=== PATIENT | female | born 1950 | race Caucasian/White ===

== ENCOUNTER 2017-03-25 13:05 | Inpatient (IN) | payer MEDICARE, MEDICAID ==
[~2017-03-25] VITALS: Ht 157.5 cm; Wt 67.9 kg
[~2017-03-25 13:05] MED LIST: LISI-660 PO; LORA10TA7 PO; OMEP20 PO; SIMV-260 PO; TRAZ-147 PO; VENL-68 PO; VITAD1000 PO
[2017-03-25] MEDS ORDERED: ZOLP5 PO (13:35)
[2017-03-25] MEDS ORDERED: CLON2 PO (13:35)
[2017-03-25 14:00] LABS: BASOPHILS # (AUTO) 0.04 K/uL (0.00-0.20); BASOPHILS % (AUTO) 0.4 % (0.0-2.0); EOSINOPHILS # (AUTO) 0.31 K/uL (0.00-0.70); EOSINOPHILS % (AUTO) 3.49 % (1.0-6.0); HEMATOCRIT 45.5 % (36-46); HEMOGLOBIN 14.7 g/dL (12.0-16.0); LYMPHOCYTES # (AUTO) 2.6 K/uL (1.0-4.8); LYMPHOCYTES % (AUTO) 28.8 % (22.0-44.0); MEAN CORPUSCULAR HEMOGLOBIN 28.4 pg (26.0-34.0); MEAN CORPUSCULAR HGB CONC 32.4 G/dL (31.0-37.0); MEAN CORPUSCULAR VOLUME 88 fL (80-100); MONOCYTES # (AUTO) 0.7 K/uL (0.1-1.0); MONOCYTES % (AUTO) 7.8 % (2.0-9.0); NEUTROPHILS # (AUTO) 5.3 K/uL (1.8-7.7); NEUTROPHILS % (AUTO) 59.5 % (40.0-70.0); PLATELET COUNT (AUTO) 250 K/uL (150-450); RED BLOOD CELL COUNT(AUTO) 5.19 MIL/uL (4.00-5.20); RED CELL DISTRIBUTION WIDTH 15.9 % (11.5-14.5); WHITE BLOOD COUNT (AUTO) 8.9 K/uL (4.5-11.0)
[2017-03-25 14:17] LABS: ANION GAP 10 mmol/L (8-16); CARBON DIOXIDE 29 mmol/L (22-29); CHLORIDE 107 mmol/L (98-107); CREATININE 0.66 mg/dL (0.60-1.30); GLOMERULAR FILTR. RATE CALC > 60 mL/min (>60); SODIUM SERUM 146 mmol/L (136-145); UREA NITROGEN, BLOOD 15 mg/dL (7-18)
[2017-03-25 14:24] LABS: ALANINE AMINOTRANSFERASE 31 U/L (12-78); ALBUMIN 3.2 g/dL (3.4-5.0); ASPARTATE AMINOTRANSFERASE 20 U/L (15-37); BILIRUBIN,TOTAL 0.3 mg/dL (0.1-1.0); TOTAL PROTEIN, SERUM 7.3 g/dL (6.4-8.2)
[2017-03-25] MEDS ORDERED: LORazepam 2 MG TABLET PO ONE (15:15)
[2017-03-25] MEDS ORDERED: HALOPERIDOL 5 MG TABLET PO PRN (15:30)
[2017-03-25] MEDS ORDERED: IBUPROFEN 600 MG TABLET PO PRN (18:30)
[2017-03-25] MEDS ORDERED: BENZOCAINE/MENTHOL LOZENGE [8 LOZENGES/PACKET] MM PRN (18:30)
[2017-03-25] MEDS ORDERED: ALBUTEROL SULFATE HFA 90 MCG/PUFF 8 GM INHALER IH PRN (18:30)
[2017-03-25] MEDS ORDERED: DICLOFENAC SODIUM 1% 100 GM GEL [2GM] TP PRN (18:30)
[2017-03-25] MEDS ORDERED: ACETAMINOPHEN 325 MG TABLET PO PRN (18:30)
[2017-03-25] MEDS ORDERED: BACITRACIN 28.4 GM OINTMENT TP PRN (18:30)
[2017-03-25] MEDS ORDERED: MAG HYDROX/AL HYDROX/SIMETH ES 30 ML SUSPENSION UDCUP PO PRN (18:30)
[2017-03-25] MEDS ORDERED: CloNIDine HCL 0.1 MG TABLET PO PRN (18:30)
[2017-03-25] MEDS ORDERED: LOPERAMIDE HCL 2 MG CAPSULE PO PRN (18:30)
[2017-03-25] MEDS ORDERED: MAGNESIUM HYDROXIDE SUSPENSION 30 ML UDCUP PO PRN (18:30)
[2017-03-25] MEDS ORDERED: ONDANSETRON HCL 4 MG TABLET PO PRN (18:30)
[2017-03-25] MEDS ORDERED: PETROLATUM,WHITE 71 GM JELLY TP PRN (18:30)
[2017-03-25 18:50] VITALS: BP 135/89
[2017-03-25] MEDS: LISINOPRIL 5 MG TABLET PO SCH (19:30)
[2017-03-25] MEDS: NICOTINE 21 MG/24 HOUR PATCH TD SCH (19:30)
[2017-03-25] MEDS: SIMVASTATIN 20 MG TABLET PO SCH (20:54)
[2017-03-26 06:51] LABS: CHOL/HDL RATIO 2.8 (3.9-5.7)
[2017-03-26 08:45] VITALS: BP 157/85
[2017-03-26] MEDS: OMEPRAZOLE 20 MG CAPSULE PO SCH (09:15)
[2017-03-26] MEDS: DOCUSATE SODIUM 100 MG CAPSULE PO SCH (09:15)
[2017-03-26] MEDS: LORATADINE 10 MG TABLET PO SCH (09:15)
[2017-03-26] MEDS: VENLAFAXINE HCL 150 MG ER CAPSULE PO SCH (09:15)
[2017-03-26] MEDS: CHOLECALCIFEROL (VIT D3) 1,000 UNITS TABLET PO SCH (09:16)
[2017-03-26] MEDS: LISINOPRIL 5 MG TABLET PO SCH (09:16)
[2017-03-26] MEDS: LORazepam 2 MG TABLET PO PRN ×3 (09:17→17:41)
[2017-03-26] MEDS: NICOTINE 21 MG/24 HOUR PATCH TD SCH (09:19)
[2017-03-26 16:51] VITALS: BP 123/75
[2017-03-26] MEDS: SIMVASTATIN 20 MG TABLET PO SCH (20:06)
[2017-03-26] MEDS: ZOLPIDEM TARTRATE 10 MG TABLET PO PRN (23:27)
[2017-03-27 00:02] VITALS: BP 140/92
[2017-03-27] MEDS: LORazepam 2 MG TABLET PO PRN ×4 (03:44→20:39)
[2017-03-27 08:42] VITALS: BP 146/72
[2017-03-27] MEDS: NICOTINE 21 MG/24 HOUR PATCH TD SCH (09:32)
[2017-03-27] MEDS: LORATADINE 10 MG TABLET PO SCH (09:32)
[2017-03-27] MEDS: DOCUSATE SODIUM 100 MG CAPSULE PO SCH (09:32)
[2017-03-27] MEDS: LISINOPRIL 5 MG TABLET PO SCH (09:32)
[2017-03-27] MEDS: CHOLECALCIFEROL (VIT D3) 1,000 UNITS TABLET PO SCH (09:32)
[2017-03-27] MEDS: VENLAFAXINE HCL 150 MG ER CAPSULE PO SCH (09:33)
[2017-03-27] MEDS: OMEPRAZOLE 20 MG CAPSULE PO SCH (09:33)
[2017-03-27] MEDS: TraMADol HCL 50 MG TABLET PO PRN (11:40)
[2017-03-27 16:53] VITALS: BP 150/98
[2017-03-27] MEDS ORDERED: DICLOFENAC SODIUM 1% 100 GM GEL [2GM] TP PRN (18:45)
[2017-03-27] MEDS: SIMVASTATIN 20 MG TABLET PO SCH (20:39)
[2017-03-27] MEDS: ZOLPIDEM TARTRATE 10 MG TABLET PO PRN (21:42)
[2017-03-28 01:08] VITALS: BP 147/101
[2017-03-28] MEDS: TraMADol HCL 50 MG TABLET PO PRN ×3 (01:16→14:20)
[2017-03-28] MEDS: LORazepam 2 MG TABLET PO PRN ×5 (03:48→20:06)
[2017-03-28] MEDS: LORATADINE 10 MG TABLET PO SCH (08:17)
[2017-03-28] MEDS: DOCUSATE SODIUM 100 MG CAPSULE PO SCH (08:17)
[2017-03-28 08:18] VITALS: BP 124/66
[2017-03-28] MEDS: VENLAFAXINE HCL 150 MG ER CAPSULE PO SCH (08:18)
[2017-03-28] MEDS: LISINOPRIL 5 MG TABLET PO SCH (08:18)
[2017-03-28] MEDS: OMEPRAZOLE 20 MG CAPSULE PO SCH (08:18)
[2017-03-28] MEDS: CHOLECALCIFEROL (VIT D3) 1,000 UNITS TABLET PO SCH (08:18)
[2017-03-28] MEDS: NICOTINE 21 MG/24 HOUR PATCH TD SCH (08:23)
[2017-03-28] MEDS: SIMVASTATIN 20 MG TABLET PO SCH (20:36)
[2017-03-28 21:01] VITALS: BP 156/90
[2017-03-28] MEDS: ZOLPIDEM TARTRATE 10 MG TABLET PO PRN (21:39)
[2017-03-29 05:00] VITALS: BP 146/89
[2017-03-29] MEDS: LORATADINE 10 MG TABLET PO SCH (08:52)
[2017-03-29] MEDS: LISINOPRIL 5 MG TABLET PO SCH (08:53)
[2017-03-29] MEDS: CHOLECALCIFEROL (VIT D3) 1,000 UNITS TABLET PO SCH (08:53)
[2017-03-29] MEDS: OMEPRAZOLE 20 MG CAPSULE PO SCH (08:53)
[2017-03-29] MEDS: DOCUSATE SODIUM 100 MG CAPSULE PO SCH (08:53)
[2017-03-29] MEDS: VENLAFAXINE HCL 150 MG ER CAPSULE PO SCH (08:55)
[2017-03-29] MEDS: LORazepam 2 MG TABLET PO PRN ×3 (08:55→17:47)
[2017-03-29] MEDS: NICOTINE 21 MG/24 HOUR PATCH TD SCH (08:57)
[2017-03-29 12:42] VITALS: BP 148/98
[2017-03-29] MEDS: TraMADol HCL 50 MG TABLET PO PRN ×2 (15:59→22:53)
[2017-03-29 16:00] VITALS: BP 141/89
[2017-03-29] MEDS: SIMVASTATIN 20 MG TABLET PO SCH (20:20)
[2017-03-29] MEDS: ZOLPIDEM TARTRATE 10 MG TABLET PO PRN (21:15)
[2017-03-29 22:50] VITALS: BP 123/79
[2017-03-30] MEDS: TraMADol HCL 50 MG TABLET PO PRN ×2 (05:53→12:55)
[2017-03-30 06:00] VITALS: BP 142/97
[2017-03-30] MEDS: LORazepam 2 MG TABLET PO PRN ×2 (08:01→12:34)
[2017-03-30] MEDS: LISINOPRIL 5 MG TABLET PO SCH (08:01)
[2017-03-30] MEDS: VENLAFAXINE HCL 150 MG ER CAPSULE PO SCH (08:02)
[2017-03-30] MEDS: LORATADINE 10 MG TABLET PO SCH (08:02)
[2017-03-30] MEDS: DOCUSATE SODIUM 100 MG CAPSULE PO SCH (08:02)
[2017-03-30] MEDS: OMEPRAZOLE 20 MG CAPSULE PO SCH (08:02)
[2017-03-30] MEDS: CHOLECALCIFEROL (VIT D3) 1,000 UNITS TABLET PO SCH (08:02)
[2017-03-30] MEDS: NICOTINE 21 MG/24 HOUR PATCH TD SCH (08:07)
[2017-03-30] MEDS ORDERED: GuaiFENesin/D-METHORPHAN/PHENYLEPH 5 ML LIQUID ORAL.SYG PO PRN (08:15)
== END 2017-03-30 15:11 | disposition home or self-care (01) | DRG 753 ==
LOC: EEVIPCON 13:07 → EMS 13:07 → 3EI 16:28
PROVIDERS: ADMIT Psychiatry & Neurology Psychiatry; ATTEND Psychiatry & Neurology Psychiatry
DX: F31.9 Bipolar disorder, unspecified (principal); K74.60 Unspecified cirrhosis of liver; R45.851 Suicidal ideations; B86 Scabies; I10 Essential (primary) hypertension; F17.210 Nicotine dependence, cigarettes, uncomplicated; J44.9 Chronic obstructive pulmonary disease, unspecified; E55.9 Vitamin D deficiency, unspecified; R45.850 Homicidal ideations; B18.2 Chronic viral hepatitis C; F41.9 Anxiety disorder, unspecified; E78.00 Pure hypercholesterolemia, unspecified; F20.9 Schizophrenia, unspecified; G89.29 Other chronic pain; M54.9 Dorsalgia, unspecified; M19.90 Unspecified osteoarthritis, unspecified site; K21.9 Gastro-esophageal reflux disease without esophagitis; G47.00 Insomnia, unspecified; F15.90 Other stimulant use, unspecified, uncomplicated; F11.90 Opioid use, unspecified, uncomplicated; F12.90 Cannabis use, unspecified, uncomplicated; Z71.51 Drug abuse counseling and surveillance of drug abuser; Z71.6 Tobacco abuse counseling; Z91.14 Patient's other noncompliance with medication regimen; Z88.0 Allergy status to penicillin; Z79.899 Other long term (current) drug therapy; Z90.49 Acquired absence of other specified parts of digestive tract; Z59.0 Homelessness; M21.619 Bunion of unspecified foot; Z91.5 Personal history of self-harm; F60.9 Personality disorder, unspecified; K59.00 Constipation, unspecified; M25.561 Pain in right knee
CPT/HCPCS: 87081; 99285; G0480

== ENCOUNTER 2017-05-13 13:45 | Emergency (ER) | payer MEDICARE, MEDICAID ==
[~2017-05-13] VITALS: Ht 152.4 cm; Wt 76.4 kg
[~2017-05-13 13:45] MED LIST changes: -TRAZ-147 PO
[2017-05-13] MEDS ORDERED: CLON1 PO (14:55)
[2017-05-13 15:25] LABS: BASOPHILS % (AUTO) 0.6 % (0.0-2.0); EOSINOPHILS % (AUTO) 5.4 % (1.0-6.0); HEMATOCRIT 42.5 % (36-46); HEMOGLOBIN 14.3 g/dL (12.0-16.0); LYMPHOCYTES # (AUTO) 2.5 K/uL (1.0-4.8); LYMPHOCYTES % (AUTO) 32.7 % (22.0-44.0); MEAN CORPUSCULAR HEMOGLOBIN 29.4 pg (26.0-34.0); MEAN CORPUSCULAR HGB CONC 33.5 G/dL (31.0-37.0); MEAN CORPUSCULAR VOLUME 88 fL (80-100); MONOCYTES # (AUTO) 0.5 K/uL (0.1-1.0); MONOCYTES % (AUTO) 7.1 % (2.0-9.0); NEUTROPHILS # (AUTO) 4.1 K/uL (1.8-7.7); NEUTROPHILS % (AUTO) 54.2 % (40.0-70.0); PLATELET COUNT (AUTO) 211 K/uL (150-450); RED BLOOD CELL COUNT(AUTO) 4.85 MIL/uL (4.00-5.20); RED CELL DISTRIBUTION WIDTH 13.9 % (11.5-14.5); WHITE BLOOD COUNT (AUTO) 7.6 K/uL (4.5-11.0)
[2017-05-13 15:33] LABS: ANION GAP 6 mmol/L (8-16); CALCIUM, TOTAL 8.9 mg/dL (8.8-10.5); CARBON DIOXIDE 29 mmol/L (22-29); CHLORIDE 104 mmol/L (98-107); CREATININE 0.76 mg/dL (0.60-1.30); GLOMERULAR FILTR. RATE CALC > 60 mL/min (>60); POTASSIUM 3.9 mmol/L (3.5-5.1); SODIUM SERUM 139 mmol/L (136-145); UREA NITROGEN, BLOOD 15 mg/dL (7-18)
[2017-05-13 15:40] LABS: ALANINE AMINOTRANSFERASE 72 U/L (12-78); ALBUMIN 3.5 g/dL (3.4-5.0); ASPARTATE AMINOTRANSFERASE 36 U/L (15-37); BILIRUBIN,TOTAL 0.3 mg/dL (0.1-1.0); CREATINE KINASE, TOTAL 54 U/L (26-192); TOTAL PROTEIN, SERUM 7.1 g/dL (6.4-8.2)
[2017-05-13 15:45] LABS: PROTHROMBIN TIME 10.5 SEC (9.4-11.6)
[2017-05-13 15:46] LABS: B-TYPE NATRIURETIC PEPTIDE 7 pg/mL (0-100)
[2017-05-13 16:49] LABS: APPEARANCE,URINE CLOUDY (CLEAR); GLUCOSE, URINE (UA) NEGATIVE (NEGATIVE); KETONES,URINE NEGATIVE (NEGATIVE); LEUKOCYTE ESTERASE ,URINE SMALL (NEGATIVE); OCCULT BLOOD,URINE NEGATIVE (NEGATIVE); PH,URINE 5.5 (5.0-8.0); PROTEIN,URINE NEGATIVE (NEGATIVE)
[2017-05-13 17:14] LABS: ADD UA MICROSCOPIC YES; CALCIUM OXALATE CRYSTALS,UR Few /LPF (None Seen); RBC,URINE 0-2 /HPF (0-2)
[2017-05-13] MEDS ORDERED: ALBUTEROL SULFATE HFA 90 MCG/PUFF 8 GM INHALER IH ONE (18:00)
[2017-05-13 18:10] VITALS: BP 125/68
== END 2017-05-13 19:17 | disposition home or self-care (01) ==
LOC: EMS 13:48
DX: J44.9 Chronic obstructive pulmonary disease, unspecified (principal); Z88.0 Allergy status to penicillin; E78.00 Pure hypercholesterolemia, unspecified; I10 Essential (primary) hypertension; F20.9 Schizophrenia, unspecified; B19.20 Unspecified viral hepatitis C without hepatic coma; K74.60 Unspecified cirrhosis of liver; F17.210 Nicotine dependence, cigarettes, uncomplicated; F11.90 Opioid use, unspecified, uncomplicated; Z90.49 Acquired absence of other specified parts of digestive tract
CPT/HCPCS: 36415; 71010; 80053; 80307; 81001; 82550; 83880; 84484; 85025; 85610; 85730; 87077; 87086; 87186; 93005; 94640; 99285; G0480; J3535

== ENCOUNTER 2017-09-18 12:25 | Inpatient (IN) | payer MEDICARE, MEDICAID ==
[~2017-09-18] VITALS: Ht 154.9 cm; Wt 71.7 kg
[~2017-09-18 12:25] MED LIST changes: +CLON1 PO; -LORA10TA7 PO; -SIMV-260 PO
[2017-09-18] MEDS ORDERED: IPRATROPIUM BROMIDE 0.5 MG/2.5 ML NEB SOLUTION NEB ONE ×3 (12:45→16:45)
[2017-09-18] MEDS ORDERED: ALBUTEROL SULFATE 2.5 MG/0.5 ML NEB SOLUTION NEB ONE (12:45)
[2017-09-18] MEDS ORDERED: 0.9% SODIUM CHLORIDE 5 ML NEB SOLUTION NEB ONE (12:46)
[2017-09-18] MEDS ORDERED: LISI-661 PO (12:47)
[2017-09-18] MEDS ORDERED: ALBUTEROL SULFATE 5 MG/ML 20 ML NEB SOLN [BULK] NEB ONE ×2 (13:15→16:45)
[2017-09-18] MEDS ORDERED: 0.9% SODIUM CHLORIDE 15 ML NEB SOLUTION NEB ONE ×2 (13:20→16:51)
[2017-09-18 13:30] LABS: BASOPHILS % (AUTO) 0.4 % (0.0-2.0); EOSINOPHILS % (AUTO) 6.4 % (1.0-6.0); HEMATOCRIT 48.5 % (36-46); HEMOGLOBIN 16.2 g/dL (12.0-16.0); LYMPHOCYTES # (AUTO) 2.5 K/uL (1.0-4.8); MEAN CORPUSCULAR HEMOGLOBIN 29.7 pg (26.0-34.0); MEAN CORPUSCULAR HGB CONC 33.3 G/dL (31.0-37.0); MEAN CORPUSCULAR VOLUME 89 fL (80-100); MONOCYTES # (AUTO) 0.6 K/uL (0.1-1.0); MONOCYTES % (AUTO) 6.3 % (2.0-9.0); NEUTROPHILS # (AUTO) 5.6 K/uL (1.8-7.7); NEUTROPHILS % (AUTO) 59.9 % (40.0-70.0); PLATELET COUNT (AUTO) 228 K/uL (150-450); RED BLOOD CELL COUNT(AUTO) 5.43 MIL/uL (4.00-5.20); RED CELL DISTRIBUTION WIDTH 13.7 % (11.5-14.5)
[2017-09-18 13:36] LABS: AMPHET/METH SCREEN,URINE NEGATIVE (NEGATIVE); BARBITURATE SCREEN, URINE NEGATIVE (NEGATIVE); BENZODIAZEPINES SCREEN,URINE NEGATIVE (NEGATIVE); CANNABINOID SCREEN,URINE NEGATIVE (NEGATIVE); COCAINE SCREEN,URINE NEGATIVE (NEGATIVE); METHADONE SCREEN, URINE NEGATIVE (NEGATIVE); OPIATE SCREEN,URINE NEGATIVE (NEGATIVE)
[2017-09-18 13:39] LABS: PHENCYCLIDINE SCREEN,URINE NEGATIVE (NEGATIVE)
[2017-09-18 13:44] LABS: ANION GAP 11 mmol/L (8-16); CALCIUM, TOTAL 9.4 mg/dL (8.8-10.5); CARBON DIOXIDE 27 mmol/L (22-29); CHLORIDE 104 mmol/L (98-107); GLOMERULAR FILTR. RATE CALC > 60 mL/min (>60); GLUCOSE,RANDOM 102 mg/dL (70-110); SODIUM SERUM 142 mmol/L (136-145); UREA NITROGEN, BLOOD 13 mg/dL (7-18)
[2017-09-18 13:49] LABS: ALANINE AMINOTRANSFERASE 54 U/L (12-78); ALBUMIN 3.8 g/dL (3.4-5.0); ALKALINE PHOSPHATASE 89 U/L (46-116); ASPARTATE AMINOTRANSFERASE 33 U/L (15-37); BILIRUBIN,TOTAL 0.5 mg/dL (0.1-1.0); TOTAL PROTEIN, SERUM 8.1 g/dL (6.4-8.2)
[2017-09-18] MEDS ORDERED: LORazepam 2 MG TABLET PO ONE (14:15)
[2017-09-18] MEDS ORDERED: DEXAMETHASONE SOD PHOS 4 MG/ML 5 ML VIAL IM ONE (14:30)
[2017-09-18] MEDS ORDERED: BENZONATATE 100 MG CAPSULE PO ONE (16:45)
[2017-09-18] MEDS ORDERED: HYDROCODONE/CHLORPHEN POLIS 10-8 MG/5 ML ORAL.SYG PO ONE (17:30)
[2017-09-18] MEDS: LISINOPRIL 10 MG TABLET PO ONE ×2 (19:12→20:00)
[2017-09-18] MEDS ORDERED: HALOPERIDOL 5 MG TABLET PO PRN (20:45)
[2017-09-18] MEDS: ZOLPIDEM TARTRATE 10 MG TABLET PO PRN (20:58)
[2017-09-18] MEDS: ClonazePAM 1 MG TABLET PO SCH (20:58)
[2017-09-18] MEDS ORDERED: IPRATROPIUM BROMIDE 0.5 MG/2.5 ML NEB SOLUTION NEB PRN (21:30)
[2017-09-18] MEDS ORDERED: ALBUTEROL SULFATE 2.5 MG/0.5 ML NEB SOLUTION NEB PRN (21:30)
[2017-09-18] MEDS ORDERED: INFLUENZA VIRUS VACCINE QVS 2017-18 (3YR+)/PF 60 MCG/0.5 ML SYRINGE IM ONE (21:45)
[2017-09-19 02:00] VITALS: BP 146/93
[2017-09-19] MEDS ORDERED: CloNIDine HCL 0.1 MG TABLET PO PRN (08:00)
[2017-09-19] MEDS ORDERED: PETROLATUM,WHITE 71 GM JELLY TP PRN (08:00)
[2017-09-19] MEDS ORDERED: LOPERAMIDE HCL 2 MG CAPSULE PO PRN (08:00)
[2017-09-19] MEDS ORDERED: ONDANSETRON HCL 4 MG TABLET PO PRN (08:00)
[2017-09-19] MEDS ORDERED: ACETAMINOPHEN 325 MG TABLET PO PRN (08:00)
[2017-09-19] MEDS ORDERED: MAG HYDROX/AL HYDROX/SIMETH ES 30 ML SUSPENSION UDCUP PO PRN (08:00)
[2017-09-19] MEDS ORDERED: BACITRACIN 28.4 GM OINTMENT TP PRN (08:00)
[2017-09-19] MEDS ORDERED: MAGNESIUM HYDROXIDE SUSPENSION 30 ML UDCUP PO PRN (08:00)
[2017-09-19] MEDS ORDERED: BENZOCAINE/MENTHOL LOZENGE MM PRN (08:00)
[2017-09-19] MEDS: LISINOPRIL 10 MG TABLET PO SCH (08:19)
[2017-09-19] MEDS: ClonazePAM 1 MG TABLET PO SCH ×2 (08:19→16:35)
[2017-09-19] MEDS: OMEPRAZOLE 20 MG CAPSULE PO SCH (08:19)
[2017-09-19] MEDS: PredniSONE 20 MG TABLET PO SCH (08:20)
[2017-09-19] MEDS: DOCUSATE SODIUM 100 MG CAPSULE PO SCH (08:22)
[2017-09-19] MEDS: VENLAFAXINE HCL 150 MG ER CAPSULE PO SCH (08:23)
[2017-09-19] MEDS: CHOLECALCIFEROL (VIT D3) 1,000 UNITS TABLET PO SCH (08:23)
[2017-09-19] MEDS ORDERED: OMEPRAZOLE 20 MG CAPSULE PO SCH (09:00)
[2017-09-19 09:22] VITALS: BP 149/98
[2017-09-19] MEDS: LORazepam 2 MG TABLET PO PRN ×3 (09:47→22:53)
[2017-09-19] MEDS: FLUTICASONE/VILANTEROL 200-25 MCG/INH INHALER [14] IH SCH (09:47)
[2017-09-19] MEDS: IBUPROFEN 600 MG TABLET PO PRN ×2 (10:26→16:35)
[2017-09-19] MEDS: IPRATROPIUM BROMIDE 0.5 MG/2.5 ML NEB SOLUTION NEB SCH ×3 (12:57→21:56)
[2017-09-19] MEDS: ALBUTEROL SULFATE 2.5 MG/0.5 ML NEB SOLUTION NEB SCH ×3 (12:58→21:56)
[2017-09-19 16:25] VITALS: BP 126/78
[2017-09-19] MEDS: SIMVASTATIN 10 MG TABLET PO SCH (20:16)
[2017-09-19] MEDS: ZOLPIDEM TARTRATE 10 MG TABLET PO PRN (21:51)
[2017-09-19] MEDS: ALBUTEROL SULFATE HFA 90 MCG/PUFF 8 GM INHALER IH PRN (23:57)
[2017-09-20] MEDS: ALBUTEROL SULFATE HFA 90 MCG/PUFF 8 GM INHALER IH PRN ×2 (07:14→18:00)
[2017-09-20 08:42] VITALS: BP 159/97
[2017-09-20] MEDS: FLUTICASONE/VILANTEROL 200-25 MCG/INH INHALER [14] IH SCH (09:36)
[2017-09-20] MEDS: VENLAFAXINE HCL 150 MG ER CAPSULE PO SCH (09:36)
[2017-09-20] MEDS: LISINOPRIL 10 MG TABLET PO SCH (09:36)
[2017-09-20] MEDS: OMEPRAZOLE 20 MG CAPSULE PO SCH (09:36)
[2017-09-20] MEDS: CHOLECALCIFEROL (VIT D3) 1,000 UNITS TABLET PO SCH (09:36)
[2017-09-20] MEDS: DOCUSATE SODIUM 100 MG CAPSULE PO SCH (09:36)
[2017-09-20] MEDS: ClonazePAM 1 MG TABLET PO SCH ×2 (09:36→18:01)
[2017-09-20] MEDS: PredniSONE 20 MG TABLET PO SCH (09:37)
[2017-09-20] MEDS: ALBUTEROL SULFATE 2.5 MG/0.5 ML NEB SOLUTION NEB SCH ×4 (10:41→20:52)
[2017-09-20] MEDS: IPRATROPIUM BROMIDE 0.5 MG/2.5 ML NEB SOLUTION NEB SCH ×4 (10:42→20:52)
[2017-09-20] MEDS: LORazepam 2 MG TABLET PO PRN ×2 (14:39→19:10)
[2017-09-20 15:30] VITALS: BP 156/102
[2017-09-20] MEDS: IBUPROFEN 600 MG TABLET PO PRN (15:45)
[2017-09-20 16:30] VITALS: BP 118/75
[2017-09-20] MEDS: SIMVASTATIN 10 MG TABLET PO SCH (21:07)
[2017-09-20] MEDS: ZOLPIDEM TARTRATE 10 MG TABLET PO PRN (21:45)
[2017-09-21 02:03] VITALS: BP 160/91
[2017-09-21] MEDS: GuaiFENesin/D-METHORPHAN/PHENYLEPH 5 ML LIQUID ORAL.SYG PO PRN ×2 (02:04→06:29)
[2017-09-21] MEDS: ALBUTEROL SULFATE HFA 90 MCG/PUFF 8 GM INHALER IH PRN ×4 (02:04→14:32)
[2017-09-21] MEDS: OMEPRAZOLE 20 MG CAPSULE PO SCH (08:26)
[2017-09-21] MEDS: VENLAFAXINE HCL 150 MG ER CAPSULE PO SCH (08:26)
[2017-09-21] MEDS: DOCUSATE SODIUM 100 MG CAPSULE PO SCH (08:27)
[2017-09-21] MEDS: CHOLECALCIFEROL (VIT D3) 1,000 UNITS TABLET PO SCH (08:27)
[2017-09-21] MEDS: PredniSONE 20 MG TABLET PO SCH (08:28)
[2017-09-21] MEDS: ClonazePAM 1 MG TABLET PO SCH ×2 (08:29→16:18)
[2017-09-21] MEDS: ALBUTEROL SULFATE 2.5 MG/0.5 ML NEB SOLUTION NEB SCH ×4 (09:00→20:50)
[2017-09-21] MEDS: FLUTICASONE/VILANTEROL 200-25 MCG/INH INHALER [14] IH SCH (10:10)
[2017-09-21 10:37] VITALS: BP 108/83
[2017-09-21] MEDS: LORazepam 2 MG TABLET PO PRN ×2 (10:53→19:26)
[2017-09-21] MEDS: LISINOPRIL 10 MG TABLET PO SCH (10:56)
[2017-09-21] MEDS: IPRATROPIUM BROMIDE 0.5 MG/2.5 ML NEB SOLUTION NEB SCH ×4 (10:59→20:50)
[2017-09-21 16:15] VITALS: BP 130/99
[2017-09-21] MEDS: SIMVASTATIN 10 MG TABLET PO SCH (20:19)
[2017-09-21] MEDS: ZOLPIDEM TARTRATE 10 MG TABLET PO PRN (21:11)
[2017-09-22] MEDS: ALBUTEROL SULFATE HFA 90 MCG/PUFF 8 GM INHALER IH PRN ×4 (03:23→16:56)
[2017-09-22] MEDS: GuaiFENesin/D-METHORPHAN/PHENYLEPH 5 ML LIQUID ORAL.SYG PO PRN ×3 (03:24→20:11)
[2017-09-22 03:33] VITALS: BP 150/107
[2017-09-22] MEDS: LORazepam 2 MG TABLET PO PRN ×3 (06:55→20:32)
[2017-09-22 08:30] VITALS: BP 130/89
[2017-09-22] MEDS: FLUTICASONE/VILANTEROL 200-25 MCG/INH INHALER [14] IH SCH (08:42)
[2017-09-22] MEDS: ClonazePAM 1 MG TABLET PO SCH ×2 (08:46→16:11)
[2017-09-22] MEDS: VENLAFAXINE HCL 150 MG ER CAPSULE PO SCH (08:46)
[2017-09-22] MEDS: PredniSONE 20 MG TABLET PO SCH (08:46)
[2017-09-22] MEDS: LISINOPRIL 10 MG TABLET PO SCH (08:47)
[2017-09-22] MEDS: CHOLECALCIFEROL (VIT D3) 1,000 UNITS TABLET PO SCH (08:47)
[2017-09-22] MEDS: OMEPRAZOLE 20 MG CAPSULE PO SCH (08:47)
[2017-09-22] MEDS: DOCUSATE SODIUM 100 MG CAPSULE PO SCH (08:48)
[2017-09-22] MEDS: IPRATROPIUM BROMIDE 0.5 MG/2.5 ML NEB SOLUTION NEB SCH ×4 (09:58→21:04)
[2017-09-22] MEDS: ALBUTEROL SULFATE 2.5 MG/0.5 ML NEB SOLUTION NEB SCH ×4 (09:58→21:04)
[2017-09-22 16:15] VITALS: BP 132/92
[2017-09-22] MEDS: IBUPROFEN 600 MG TABLET PO PRN (16:55)
[2017-09-22 17:00] VITALS: BP 129/78
[2017-09-22] MEDS: SIMVASTATIN 10 MG TABLET PO SCH (20:27)
[2017-09-22] MEDS: ZOLPIDEM TARTRATE 10 MG TABLET PO PRN (21:30)
[2017-09-23] MEDS: ALBUTEROL SULFATE HFA 90 MCG/PUFF 8 GM INHALER IH PRN ×4 (03:03→19:34)
[2017-09-23 04:10] VITALS: BP 125/76
[2017-09-23] MEDS: ClonazePAM 1 MG TABLET PO SCH ×2 (08:54→16:30)
[2017-09-23] MEDS: OMEPRAZOLE 20 MG CAPSULE PO SCH (08:54)
[2017-09-23] MEDS: DOCUSATE SODIUM 100 MG CAPSULE PO SCH (08:54)
[2017-09-23] MEDS: VENLAFAXINE HCL 150 MG ER CAPSULE PO SCH (08:54)
[2017-09-23] MEDS: LISINOPRIL 10 MG TABLET PO SCH (08:55)
[2017-09-23] MEDS: CHOLECALCIFEROL (VIT D3) 1,000 UNITS TABLET PO SCH (08:55)
[2017-09-23] MEDS: PredniSONE 20 MG TABLET PO SCH (08:56)
[2017-09-23 09:00] VITALS: BP 136/95
[2017-09-23] MEDS: FLUTICASONE/VILANTEROL 200-25 MCG/INH INHALER [14] IH SCH (09:55)
[2017-09-23] MEDS: IPRATROPIUM BROMIDE 0.5 MG/2.5 ML NEB SOLUTION NEB SCH ×4 (10:13→22:11)
[2017-09-23] MEDS: ALBUTEROL SULFATE 2.5 MG/0.5 ML NEB SOLUTION NEB SCH ×4 (10:13→22:11)
[2017-09-23] MEDS: LORazepam 2 MG TABLET PO PRN ×2 (12:25→18:25)
[2017-09-23 16:00] VITALS: BP 129/85
[2017-09-23] MEDS: BENZOCAINE/MENTHOL LOZENGE [8 LOZENGES/PACKET] MM PRN ×2 (16:34→21:00)
[2017-09-23] MEDS: SIMVASTATIN 10 MG TABLET PO SCH (20:11)
[2017-09-23] MEDS: ZOLPIDEM TARTRATE 10 MG TABLET PO PRN (21:39)
[2017-09-24] MEDS: FLUTICASONE/VILANTEROL 200-25 MCG/INH INHALER [14] IH SCH (07:53)
[2017-09-24] MEDS: ALBUTEROL SULFATE HFA 90 MCG/PUFF 8 GM INHALER IH PRN ×2 (07:55→14:24)
[2017-09-24] MEDS: VENLAFAXINE HCL 150 MG ER CAPSULE PO SCH (08:21)
[2017-09-24] MEDS: CHOLECALCIFEROL (VIT D3) 1,000 UNITS TABLET PO SCH (08:21)
[2017-09-24] MEDS: ClonazePAM 1 MG TABLET PO SCH ×2 (08:21→16:32)
[2017-09-24] MEDS: LISINOPRIL 10 MG TABLET PO SCH (08:21)
[2017-09-24] MEDS: OMEPRAZOLE 20 MG CAPSULE PO SCH (08:21)
[2017-09-24] MEDS: PredniSONE 20 MG TABLET PO SCH (08:22)
[2017-09-24] MEDS: DOCUSATE SODIUM 100 MG CAPSULE PO SCH (08:22)
[2017-09-24] MEDS: ALBUTEROL SULFATE 2.5 MG/0.5 ML NEB SOLUTION NEB SCH ×4 (08:56→21:20)
[2017-09-24] MEDS: IPRATROPIUM BROMIDE 0.5 MG/2.5 ML NEB SOLUTION NEB SCH ×4 (08:56→21:20)
[2017-09-24 09:00] VITALS: BP 126/80
[2017-09-24] MEDS ORDERED: INFLUENZA VIRUS VACCINE QVS 2017-18 (3YR+)/PF 60 MCG/0.5 ML SYRINGE IM ONE (11:45)
[2017-09-24] MEDS: LORazepam 2 MG TABLET PO PRN (13:25)
[2017-09-24 16:33] VITALS: BP 132/83
[2017-09-24] MEDS: IBUPROFEN 600 MG TABLET PO PRN (16:35)
[2017-09-24] MEDS: SIMVASTATIN 10 MG TABLET PO SCH (21:39)
[2017-09-25] VITALS: BP 145/84
[2017-09-25] MEDS: ALBUTEROL SULFATE HFA 90 MCG/PUFF 8 GM INHALER IH PRN (06:31)
[2017-09-25] MEDS: OMEPRAZOLE 20 MG CAPSULE PO SCH (07:52)
[2017-09-25] MEDS: VENLAFAXINE HCL 150 MG ER CAPSULE PO SCH (07:52)
[2017-09-25] MEDS: LISINOPRIL 10 MG TABLET PO SCH (07:53)
[2017-09-25] MEDS: PredniSONE 20 MG TABLET PO SCH (07:53)
[2017-09-25] MEDS: ClonazePAM 1 MG TABLET PO SCH ×2 (07:53→17:31)
[2017-09-25] MEDS: DOCUSATE SODIUM 100 MG CAPSULE PO SCH (07:54)
[2017-09-25] MEDS: FLUTICASONE/VILANTEROL 200-25 MCG/INH INHALER [14] IH SCH (07:54)
[2017-09-25] MEDS: CHOLECALCIFEROL (VIT D3) 1,000 UNITS TABLET PO SCH (07:54)
[2017-09-25] MEDS: ALBUTEROL SULFATE 2.5 MG/0.5 ML NEB SOLUTION NEB SCH ×4 (08:27→21:00)
[2017-09-25] MEDS: IPRATROPIUM BROMIDE 0.5 MG/2.5 ML NEB SOLUTION NEB SCH ×4 (08:27→21:00)
[2017-09-25 09:00] VITALS: BP 143/92
[2017-09-25] MEDS: LORazepam 2 MG TABLET PO PRN ×3 (10:56→21:55)
[2017-09-25] MEDS: IBUPROFEN 600 MG TABLET PO PRN (13:19)
[2017-09-25 13:25] VITALS: BP 136/100
[2017-09-25 19:27] VITALS: BP 138/86
[2017-09-25] MEDS: SIMVASTATIN 10 MG TABLET PO SCH (20:45)
[2017-09-25] MEDS: ZOLPIDEM TARTRATE 10 MG TABLET PO PRN (20:45)
[2017-09-26 04:37] VITALS: BP 127/99
[2017-09-26 08:00] VITALS: BP 130/101
[2017-09-26] MEDS: DOCUSATE SODIUM 100 MG CAPSULE PO SCH (08:29)
[2017-09-26] MEDS: ClonazePAM 1 MG TABLET PO SCH ×3 (08:30→20:01)
[2017-09-26] MEDS: LISINOPRIL 10 MG TABLET PO SCH (08:30)
[2017-09-26] MEDS: VENLAFAXINE HCL 150 MG ER CAPSULE PO SCH (08:31)
[2017-09-26] MEDS: FLUTICASONE/VILANTEROL 200-25 MCG/INH INHALER [14] IH SCH (08:37)
[2017-09-26] MEDS: OMEPRAZOLE 20 MG CAPSULE PO SCH (08:37)
[2017-09-26] MEDS: CHOLECALCIFEROL (VIT D3) 1,000 UNITS TABLET PO SCH (08:39)
[2017-09-26] MEDS: PredniSONE 5 MG TABLET PO SCH (09:01)
[2017-09-26] MEDS: ALBUTEROL SULFATE 2.5 MG/0.5 ML NEB SOLUTION NEB SCH ×4 (09:13→21:36)
[2017-09-26] MEDS: IPRATROPIUM BROMIDE 0.5 MG/2.5 ML NEB SOLUTION NEB SCH ×4 (09:13→21:36)
[2017-09-26 09:15] VITALS: BP 132/94
[2017-09-26] MEDS: LORazepam 2 MG TABLET PO PRN ×3 (12:29→23:46)
[2017-09-26] MEDS: ALBUTEROL SULFATE HFA 90 MCG/PUFF 8 GM INHALER IH PRN ×2 (12:35→18:55)
[2017-09-26] MEDS: BENZOCAINE/MENTHOL LOZENGE [8 LOZENGES/PACKET] MM PRN ×2 (13:57→22:15)
[2017-09-26 18:35] VITALS: BP 126/80
[2017-09-26] MEDS: SIMVASTATIN 10 MG TABLET PO SCH (20:01)
[2017-09-26] MEDS: ZOLPIDEM TARTRATE 10 MG TABLET PO PRN (22:14)
[2017-09-26 23:44] VITALS: BP 149/88
[2017-09-27 00:45] VITALS: BP 136/92
[2017-09-27] MEDS: IBUPROFEN 600 MG TABLET PO PRN ×2 (00:48→15:41)
[2017-09-27 04:12] VITALS: BP 147/97
[2017-09-27] MEDS: LORazepam 2 MG TABLET PO PRN ×3 (04:12→19:58)
[2017-09-27 08:05] VITALS: BP 141/97
[2017-09-27] MEDS: FLUTICASONE/VILANTEROL 200-25 MCG/INH INHALER [14] IH SCH (08:06)
[2017-09-27] MEDS: ALBUTEROL SULFATE HFA 90 MCG/PUFF 8 GM INHALER IH PRN ×2 (08:07→15:45)
[2017-09-27] MEDS: DOCUSATE SODIUM 100 MG CAPSULE PO SCH (08:09)
[2017-09-27] MEDS: OMEPRAZOLE 20 MG CAPSULE PO SCH (08:10)
[2017-09-27] MEDS: ClonazePAM 1 MG TABLET PO SCH ×2 (08:10→16:53)
[2017-09-27] MEDS: CHOLECALCIFEROL (VIT D3) 1,000 UNITS TABLET PO SCH (08:10)
[2017-09-27] MEDS: VENLAFAXINE HCL 150 MG ER CAPSULE PO SCH (08:10)
[2017-09-27] MEDS: LISINOPRIL 10 MG TABLET PO SCH (08:11)
[2017-09-27] MEDS: PredniSONE 5 MG TABLET PO SCH (08:11)
[2017-09-27] MEDS: ALBUTEROL SULFATE 2.5 MG/0.5 ML NEB SOLUTION NEB SCH ×4 (08:52→21:33)
[2017-09-27] MEDS: IPRATROPIUM BROMIDE 0.5 MG/2.5 ML NEB SOLUTION NEB SCH ×4 (08:52→21:33)
[2017-09-27 09:30] VITALS: BP 138/92
[2017-09-27] MEDS: BENZOCAINE/MENTHOL LOZENGE [8 LOZENGES/PACKET] MM PRN ×2 (15:46→22:07)
[2017-09-27 16:49] VITALS: BP 117/63
[2017-09-27] MEDS: SIMVASTATIN 10 MG TABLET PO SCH (21:42)
[2017-09-27] MEDS: ZOLPIDEM TARTRATE 10 MG TABLET PO PRN (22:06)
[2017-09-28 00:36] VITALS: BP 134/88
[2017-09-28] MEDS: LORazepam 2 MG TABLET PO PRN ×4 (00:36→21:29)
[2017-09-28] MEDS: IPRATROPIUM BROMIDE 0.5 MG/2.5 ML NEB SOLUTION NEB SCH ×5 (08:45→20:30)
[2017-09-28] MEDS: ALBUTEROL SULFATE 2.5 MG/0.5 ML NEB SOLUTION NEB SCH ×4 (08:45→15:52)
[2017-09-28] MEDS: OMEPRAZOLE 20 MG CAPSULE PO SCH (09:14)
[2017-09-28] MEDS: PredniSONE 5 MG TABLET PO SCH (09:14)
[2017-09-28] MEDS: ClonazePAM 1 MG TABLET PO SCH ×2 (09:14→16:17)
[2017-09-28] MEDS: CHOLECALCIFEROL (VIT D3) 1,000 UNITS TABLET PO SCH (09:15)
[2017-09-28] MEDS: LISINOPRIL 10 MG TABLET PO SCH (09:15)
[2017-09-28] MEDS: DOCUSATE SODIUM 100 MG CAPSULE PO SCH (09:16)
[2017-09-28] MEDS: VENLAFAXINE HCL 150 MG ER CAPSULE PO SCH (09:16)
[2017-09-28] MEDS: FLUTICASONE/VILANTEROL 200-25 MCG/INH INHALER [14] IH SCH (09:17)
[2017-09-28 10:12] VITALS: BP 128/80
[2017-09-28] MEDS: IBUPROFEN 600 MG TABLET PO PRN ×2 (10:12→16:17)
[2017-09-28 16:16] VITALS: BP 130/70
[2017-09-28 17:16] VITALS: BP 122/76
[2017-09-28] MEDS: SIMVASTATIN 10 MG TABLET PO SCH (21:27)
[2017-09-28] MEDS: ZOLPIDEM TARTRATE 10 MG TABLET PO PRN (21:29)
[2017-09-29 05:30] VITALS: BP 130/90
[2017-09-29] MEDS: LORazepam 2 MG TABLET PO PRN (05:30)
[2017-09-29] MEDS: ALBUTEROL SULFATE HFA 90 MCG/PUFF 8 GM INHALER IH PRN ×2 (05:39→11:41)
[2017-09-29] MEDS: FLUTICASONE/VILANTEROL 200-25 MCG/INH INHALER [14] IH SCH (07:54)
[2017-09-29] MEDS: OMEPRAZOLE 20 MG CAPSULE PO SCH (07:57)
[2017-09-29] MEDS: VENLAFAXINE HCL 150 MG ER CAPSULE PO SCH (07:57)
[2017-09-29] MEDS: ClonazePAM 1 MG TABLET PO SCH (07:57)
[2017-09-29] MEDS: LISINOPRIL 10 MG TABLET PO SCH (07:57)
[2017-09-29] MEDS: CHOLECALCIFEROL (VIT D3) 1,000 UNITS TABLET PO SCH (07:57)
[2017-09-29] MEDS: PredniSONE 5 MG TABLET PO SCH (07:58)
[2017-09-29] MEDS ORDERED: ALBUTEROL SULFATE 2.5 MG/0.5 ML NEB SOLUTION NEB SCH (09:00)
[2017-09-29] MEDS: DOCUSATE SODIUM 100 MG CAPSULE PO SCH (09:00)
[2017-09-29] MEDS: IPRATROPIUM BROMIDE 0.5 MG/2.5 ML NEB SOLUTION NEB SCH ×2 (09:26→13:08)
[2017-09-29] MEDS ORDERED: AUD NEB (10:27)
[2017-09-29] MEDS ORDERED: DSS100 PO (10:27)
[2017-09-29] MEDS ORDERED: FLUT1BLS IH (10:28)
[2017-09-29] MEDS ORDERED: SIMV-259 PO (10:28)
[2017-09-29] MEDS ORDERED: PRED5 PO ×2 (10:29→10:30)
[2017-09-29] MEDS ORDERED: IPRNEB NEB (10:31)
[2017-09-29 14:20] VITALS: BP 134/88
[2017-10-02] MEDS ORDERED: PredniSONE 5 MG TABLET PO SCH (09:00)
[2017-10-06] MEDS ORDERED: PredniSONE 5 MG TABLET PO SCH (09:00)
== END 2017-09-29 14:10 | disposition home or self-care (01) | DRG 750 ==
LOC: EMS 12:26 → 3EI 20:54
PROVIDERS: ADMIT Psychiatry & Neurology Child & Adolescent Psychiatry; ATTEND Psychiatry & Neurology Child & Adolescent Psychiatry
DX: F25.1 Schizoaffective disorder, depressive type (principal); J44.1 Chronic obstructive pulmonary disease with (acute) exacerbation; K74.60 Unspecified cirrhosis of liver; R45.851 Suicidal ideations; I10 Essential (primary) hypertension; E55.9 Vitamin D deficiency, unspecified; B18.2 Chronic viral hepatitis C; E78.5 Hyperlipidemia, unspecified; F32.9 Major depressive disorder, single episode, unspecified; F41.9 Anxiety disorder, unspecified; G47.00 Insomnia, unspecified; F17.210 Nicotine dependence, cigarettes, uncomplicated; F60.9 Personality disorder, unspecified; K21.9 Gastro-esophageal reflux disease without esophagitis; K58.9 Irritable bowel syndrome, unspecified; M19.90 Unspecified osteoarthritis, unspecified site; Z90.49 Acquired absence of other specified parts of digestive tract; Z88.0 Allergy status to penicillin; Z71.6 Tobacco abuse counseling; Z79.899 Other long term (current) drug therapy
CPT/HCPCS: 71020; 90471; 94640; 94644; 99285; G0480; J1100; J3535

== ENCOUNTER 2017-10-13 12:16 | Inpatient (IN) | payer MEDICARE, MEDICAID ==
[~2017-10-13] VITALS: Ht 152.4 cm; Wt 73.6 kg
[~2017-10-13 12:16] MED LIST changes: +AUD NEB; +DSS100 PO; +FLUT1BLS IH; +IPRNEB NEB; -LISI-660 PO; +LISI-661 PO; +PRED5 PO; +SIMV-259 PO
[2017-10-13] MEDS ORDERED: LORazepam 2 MG TABLET PO ONE (14:15)
[2017-10-13] MEDS ORDERED: HALOPERIDOL 5 MG TABLET PO PRN (14:30)
[2017-10-13] MEDS ORDERED: ZOLPIDEM TARTRATE 10 MG TABLET PO PRN (14:30)
[2017-10-13] MEDS ORDERED: LISI-662 PO (14:39)
[2017-10-13 14:49] LABS: BASOPHILS % (AUTO) 0.4 % (0.0-2.0); EOSINOPHILS % (AUTO) 4.2 % (1.0-6.0); HEMATOCRIT 42.3 % (36-46); HEMOGLOBIN 14.3 g/dL (12.0-16.0); LYMPHOCYTES # (AUTO) 1.9 K/uL (1.0-4.8); LYMPHOCYTES % (AUTO) 26.8 % (22.0-44.0); MEAN CORPUSCULAR HGB CONC 33.9 G/dL (31.0-37.0); MEAN CORPUSCULAR VOLUME 89 fL (80-100); MONOCYTES # (AUTO) 0.6 K/uL (0.1-1.0); MONOCYTES % (AUTO) 8.9 % (2.0-9.0); NEUTROPHILS # (AUTO) 4.1 K/uL (1.8-7.7); NEUTROPHILS % (AUTO) 59.7 % (40.0-70.0); PLATELET COUNT (AUTO) 246 K/uL (150-450); RED BLOOD CELL COUNT(AUTO) 4.77 MIL/uL (4.00-5.20); RED CELL DISTRIBUTION WIDTH 14.1 % (11.5-14.5)
[2017-10-13 15:20] LABS: ANION GAP 9 mmol/L (8-16); CALCIUM, TOTAL 9.2 mg/dL (8.8-10.5); CARBON DIOXIDE 30 mmol/L (22-29); CHLORIDE 102 mmol/L (98-107); CREATININE 0.77 mg/dL (0.60-1.30); GLOMERULAR FILTR. RATE CALC > 60 mL/min (>60); POTASSIUM 3.9 mmol/L (3.5-5.1); SODIUM SERUM 141 mmol/L (136-145); UREA NITROGEN, BLOOD 16 mg/dL (7-18)
[2017-10-13 15:26] LABS: ALANINE AMINOTRANSFERASE 72 U/L (12-78); ALBUMIN 3.3 g/dL (3.4-5.0); ASPARTATE AMINOTRANSFERASE 52 U/L (15-37); BILIRUBIN,TOTAL 0.4 mg/dL (0.1-1.0); TOTAL PROTEIN, SERUM 7.4 g/dL (6.4-8.2)
[2017-10-13 16:00] VITALS: BP 119/91
[2017-10-13] MEDS ORDERED: PNEUMOCOCCAL VACCINE POLYVALENT 0.5 ML VIAL [PPSV23] IM ONE (17:15)
[2017-10-13] MEDS ORDERED: CloNIDine HCL 0.1 MG TABLET PO PRN (20:15)
[2017-10-13] MEDS ORDERED: ACETAMINOPHEN 325 MG TABLET PO PRN (20:15)
[2017-10-13] MEDS ORDERED: IPRATROPIUM BROMIDE 0.5 MG/2.5 ML NEB SOLUTION NEB PRN (20:15)
[2017-10-13] MEDS ORDERED: ALBUTEROL SULFATE 2.5 MG/0.5 ML NEB SOLUTION NEB PRN (20:15)
[2017-10-13] MEDS ORDERED: MAGNESIUM HYDROXIDE SUSPENSION 30 ML UDCUP PO PRN (20:15)
[2017-10-13] MEDS: SIMVASTATIN 10 MG TABLET PO SCH (20:20)
[2017-10-13] MEDS ORDERED: BENZOCAINE/MENTHOL LOZENGE [8 LOZENGES/PACKET] MM PRN (20:30)
[2017-10-13] MEDS ORDERED: GuaiFENesin/D-METHORPHAN/PHENYLEPH 5 ML LIQUID ORAL.SYG PO PRN (20:30)
[2017-10-14 08:30] VITALS: BP 141/95
[2017-10-14] MEDS: PredniSONE 5 MG TABLET PO SCH (09:00)
[2017-10-14] MEDS: CHOLECALCIFEROL (VIT D3) 1,000 UNITS TABLET PO SCH (09:00)
[2017-10-14] MEDS: DOCUSATE SODIUM 100 MG CAPSULE PO SCH (09:00)
[2017-10-14] MEDS: FLUTICASONE/VILANTEROL 200-25 MCG/INH INHALER [14] IH SCH (09:00)
[2017-10-14] MEDS: OMEPRAZOLE 20 MG CAPSULE PO SCH (09:00)
[2017-10-14] MEDS ORDERED: VENLAFAXINE HCL 150 MG ER CAPSULE PO SCH ×2 (09:00→12:45)
[2017-10-14] MEDS: LISINOPRIL 20 MG TABLET PO SCH (09:29)
[2017-10-14] MEDS: HydrOXYzine PAMOATE 25 MG CAPSULE PO PRN ×2 (13:26→18:58)
[2017-10-14] MEDS: IBUPROFEN 600 MG TABLET PO PRN (13:30)
[2017-10-14] MEDS: SIMVASTATIN 10 MG TABLET PO SCH (20:40)
[2017-10-15 05:58] VITALS: BP 140/90
[2017-10-15] MEDS: ALBUTEROL SULFATE HFA 90 MCG/PUFF 8 GM INHALER IH PRN (05:58)
[2017-10-15] MEDS: OMEPRAZOLE 20 MG CAPSULE PO SCH (08:21)
[2017-10-15] MEDS: CHOLECALCIFEROL (VIT D3) 1,000 UNITS TABLET PO SCH (08:21)
[2017-10-15] MEDS: FLUTICASONE/VILANTEROL 200-25 MCG/INH INHALER [14] IH SCH (08:21)
[2017-10-15] MEDS: DOCUSATE SODIUM 100 MG CAPSULE PO SCH (08:21)
[2017-10-15] MEDS: LISINOPRIL 20 MG TABLET PO SCH (08:21)
[2017-10-15] MEDS: PredniSONE 5 MG TABLET PO SCH (08:21)
[2017-10-15] MEDS: VENLAFAXINE HCL 75 MG ER CAPSULE PO SCH (08:22)
[2017-10-15] MEDS: HydrOXYzine PAMOATE 25 MG CAPSULE PO PRN (08:27)
[2017-10-15 09:10] VITALS: BP 134/93
[2017-10-15] MEDS: LORazepam 2 MG TABLET PO PRN (12:24)
[2017-10-15 18:00] VITALS: BP 149/70
[2017-10-15 18:55] VITALS: BP 131/73
[2017-10-15] MEDS: IBUPROFEN 600 MG TABLET PO PRN (18:59)
[2017-10-15] MEDS: SIMVASTATIN 10 MG TABLET PO SCH (20:09)
[2017-10-16 05:32] VITALS: BP 154/101
[2017-10-16] MEDS: LORazepam 2 MG TABLET PO PRN ×3 (05:36→17:04)
[2017-10-16] MEDS: CHOLECALCIFEROL (VIT D3) 1,000 UNITS TABLET PO SCH (08:18)
[2017-10-16] MEDS: LISINOPRIL 20 MG TABLET PO SCH (08:18)
[2017-10-16] MEDS: OMEPRAZOLE 20 MG CAPSULE PO SCH (08:18)
[2017-10-16] MEDS: VENLAFAXINE HCL 75 MG ER CAPSULE PO SCH (08:19)
[2017-10-16] MEDS: PredniSONE 5 MG TABLET PO SCH (08:19)
[2017-10-16] MEDS: FLUTICASONE/VILANTEROL 200-25 MCG/INH INHALER [14] IH SCH (08:19)
[2017-10-16] MEDS: ALBUTEROL SULFATE HFA 90 MCG/PUFF 8 GM INHALER IH PRN (08:19)
[2017-10-16] MEDS: DOCUSATE SODIUM 100 MG CAPSULE PO SCH (09:00)
[2017-10-16 09:35] VITALS: BP 148/88
[2017-10-16 11:49] VITALS: BP 132/86
[2017-10-16] MEDS: IBUPROFEN 600 MG TABLET PO PRN ×2 (11:51→17:04)
[2017-10-16 16:22] VITALS: BP 153/75
[2017-10-16 17:00] VITALS: BP 156/88
[2017-10-16] MEDS ORDERED: DOCUSATE SODIUM 100 MG CAPSULE PO PRN (17:30)
[2017-10-16] MEDS: SIMVASTATIN 10 MG TABLET PO SCH (20:52)
[2017-10-16] MEDS: TraZODone HCL 150 MG TABLET PO SCH (20:53)
[2017-10-17] MEDS: LORazepam 2 MG TABLET PO PRN ×3 (06:52→18:00)
[2017-10-17 09:53] VITALS: BP 129/72
[2017-10-17] MEDS: VENLAFAXINE HCL 75 MG ER CAPSULE PO SCH (10:08)
[2017-10-17] MEDS: FLUTICASONE/VILANTEROL 200-25 MCG/INH INHALER [14] IH SCH (10:08)
[2017-10-17] MEDS: OMEPRAZOLE 20 MG CAPSULE PO SCH (10:08)
[2017-10-17] MEDS: CHOLECALCIFEROL (VIT D3) 1,000 UNITS TABLET PO SCH (10:08)
[2017-10-17] MEDS: PredniSONE 5 MG TABLET PO SCH (10:08)
[2017-10-17] MEDS: LISINOPRIL 10 MG TABLET PO SCH (10:08)
[2017-10-17] MEDS: ALBUTEROL SULFATE HFA 90 MCG/PUFF 8 GM INHALER IH PRN (10:10)
[2017-10-17 17:09] VITALS: BP 121/84
[2017-10-17] MEDS: TraZODone HCL 150 MG TABLET PO SCH (20:55)
[2017-10-17] MEDS: SIMVASTATIN 10 MG TABLET PO SCH (20:58)
[2017-10-18 08:05] VITALS: BP 135/91
[2017-10-18 08:07] LABS: APPEARANCE,URINE CLOUDY (CLEAR); GLUCOSE, URINE (UA) NEGATIVE (NEGATIVE); KETONES,URINE NEGATIVE (NEGATIVE); LEUKOCYTE ESTERASE ,URINE MODERATE (NEGATIVE); OCCULT BLOOD,URINE NEGATIVE (NEGATIVE); PROTEIN,URINE NEGATIVE (NEGATIVE)
[2017-10-18] MEDS: FLUTICASONE/VILANTEROL 200-25 MCG/INH INHALER [14] IH SCH (08:12)
[2017-10-18] MEDS: LISINOPRIL 10 MG TABLET PO SCH (08:13)
[2017-10-18] MEDS: PredniSONE 5 MG TABLET PO SCH (08:13)
[2017-10-18] MEDS: OMEPRAZOLE 20 MG CAPSULE PO SCH (08:13)
[2017-10-18] MEDS: VENLAFAXINE HCL 75 MG ER CAPSULE PO SCH (08:13)
[2017-10-18] MEDS: CHOLECALCIFEROL (VIT D3) 1,000 UNITS TABLET PO SCH (08:13)
[2017-10-18] MEDS: LORazepam 2 MG TABLET PO PRN ×3 (08:13→20:32)
[2017-10-18 08:32] LABS: ADD UA MICROSCOPIC YES; RBC,URINE None Seen /HPF (0-2); SQUAMOUS EPITHELIAL CELL,UR Moderate /LPF (None Seen)
[2017-10-18] MEDS: GuaiFENesin/D-METHORPHAN [SUGAR-FREE] 200-20MG/10 ML SYRUP UDCUP PO PRN ×2 (11:55→17:07)
[2017-10-18] MEDS: IBUPROFEN 600 MG TABLET PO PRN (17:07)
[2017-10-18 17:10] VITALS: BP 132/87
[2017-10-18] MEDS: NITROFURANTOIN/NITROFURAN MAC 100 MG CAPSULE [MACROBID] PO SCH (20:32)
[2017-10-18] MEDS: TraZODone HCL 150 MG TABLET PO SCH (20:32)
[2017-10-18] MEDS: SIMVASTATIN 10 MG TABLET PO SCH (20:32)
[2017-10-19 06:22] VITALS: BP 159/93
[2017-10-19] MEDS: GuaiFENesin/D-METHORPHAN [SUGAR-FREE] 200-20MG/10 ML SYRUP UDCUP PO PRN (08:02)
[2017-10-19 08:37] VITALS: BP 122/100
[2017-10-19] MEDS: VENLAFAXINE HCL 75 MG ER CAPSULE PO SCH (08:55)
[2017-10-19] MEDS: CHOLECALCIFEROL (VIT D3) 1,000 UNITS TABLET PO SCH (08:57)
[2017-10-19] MEDS: NITROFURANTOIN/NITROFURAN MAC 100 MG CAPSULE [MACROBID] PO SCH (08:57)
[2017-10-19] MEDS: OMEPRAZOLE 20 MG CAPSULE PO SCH (08:57)
[2017-10-19] MEDS: LISINOPRIL 10 MG TABLET PO SCH (08:57)
[2017-10-19] MEDS: FLUTICASONE/VILANTEROL 200-25 MCG/INH INHALER [14] IH SCH (08:58)
[2017-10-19] MEDS: PredniSONE 5 MG TABLET PO SCH (08:59)
[2017-10-19] MEDS ORDERED: TRAZ150 PO (10:23)
[2017-10-19] MEDS ORDERED: NITR25OR3 PO (10:27)
[2017-10-19] MEDS ORDERED: PRED1 PO (10:33)
== END 2017-10-19 14:00 | disposition home or self-care (01) | DRG 750 ==
LOC: EMS 12:17 → 3EI 15:49
PROVIDERS: ATTEND Psychiatry & Neurology Child & Adolescent Psychiatry
DX: F25.9 Schizoaffective disorder, unspecified (principal); F33.2 Major depressive disorder, recurrent severe without psychotic features; R45.851 Suicidal ideations; J44.9 Chronic obstructive pulmonary disease, unspecified; Z91.14 Patient's other noncompliance with medication regimen; Z59.0 Homelessness; I10 Essential (primary) hypertension; B86 Scabies; F11.90 Opioid use, unspecified, uncomplicated; G47.00 Insomnia, unspecified; M54.9 Dorsalgia, unspecified; F60.3 Borderline personality disorder; E78.00 Pure hypercholesterolemia, unspecified; F41.9 Anxiety disorder, unspecified; K21.9 Gastro-esophageal reflux disease without esophagitis; K58.9 Irritable bowel syndrome, unspecified; M19.90 Unspecified osteoarthritis, unspecified site; N39.0 Urinary tract infection, site not specified; E55.9 Vitamin D deficiency, unspecified; B18.2 Chronic viral hepatitis C; Z28.21 Immunization not carried out because of patient refusal; Z90.49 Acquired absence of other specified parts of digestive tract; Z56.0 Unemployment, unspecified; Z79.899 Other long term (current) drug therapy; Z63.9 Problem related to primary support group, unspecified; Z88.0 Allergy status to penicillin
CPT/HCPCS: 87081; 87086; 99285; G0480; J3535

== ENCOUNTER 2017-11-23 17:26 | Inpatient (IN) | payer MEDICARE, MEDICAID ==
[~2017-11-23] VITALS: Ht 152.4 cm; Wt 77.3 kg
[~2017-11-23 17:26] MED LIST changes: -AUD NEB; -CLON1 PO; -DSS100 PO; -IPRNEB NEB; -LISI-661 PO; +LISI-662 PO; +NITR25OR3 PO; +PRED1 PO; -PRED5 PO; +TRAZ150 PO
[2017-11-23 19:40] LABS: BASOPHILS % (AUTO) 0.8 % (0.0-2.0); EOSINOPHILS % (AUTO) 3.9 % (1.0-6.0); HEMATOCRIT 41.5 % (36-46); HEMOGLOBIN 14.1 g/dL (12.0-16.0); LYMPHOCYTES # (AUTO) 2.5 K/uL (1.0-4.8); LYMPHOCYTES % (AUTO) 24.3 % (22.0-44.0); MEAN CORPUSCULAR HEMOGLOBIN 30.4 pg (26.0-34.0); MEAN CORPUSCULAR VOLUME 89 fL (80-100); MONOCYTES # (AUTO) 0.8 K/uL (0.1-1.0); MONOCYTES % (AUTO) 7.6 % (2.0-9.0); NEUTROPHILS # (AUTO) 6.4 K/uL (1.8-7.7); NEUTROPHILS % (AUTO) 63.4 % (40.0-70.0); PLATELET COUNT (AUTO) 324 K/uL (150-450); RED BLOOD CELL COUNT(AUTO) 4.64 MIL/uL (4.00-5.20); RED CELL DISTRIBUTION WIDTH 13.8 % (11.5-14.5)
[2017-11-23 19:52] LABS: AMPHET/METH SCREEN,URINE NEGATIVE (NEGATIVE); BARBITURATE SCREEN, URINE NEGATIVE (NEGATIVE); BENZODIAZEPINES SCREEN,URINE NEGATIVE (NEGATIVE); CANNABINOID SCREEN,URINE NEGATIVE (NEGATIVE); COCAINE SCREEN,URINE NEGATIVE (NEGATIVE); METHADONE SCREEN, URINE NEGATIVE (NEGATIVE); OPIATE SCREEN,URINE NEGATIVE (NEGATIVE)
[2017-11-23 19:53] LABS: ANION GAP 8 mmol/L (8-16); CALCIUM, TOTAL 9.3 mg/dL (8.8-10.5); CARBON DIOXIDE 29 mmol/L (22-29); CHLORIDE 104 mmol/L (98-107); CREATININE 0.93 mg/dL (0.60-1.30); GLOMERULAR FILTR. RATE CALC > 60 mL/min (>60); GLUCOSE,RANDOM 96 mg/dL (70-110); POTASSIUM 4.1 mmol/L (3.5-5.1); SODIUM SERUM 141 mmol/L (136-145); UREA NITROGEN, BLOOD 21 mg/dL (7-18)
[2017-11-23 19:57] LABS: PHENCYCLIDINE SCREEN,URINE NEGATIVE (NEGATIVE)
[2017-11-23 19:58] LABS: ALANINE AMINOTRANSFERASE 108 U/L (12-78); ALBUMIN 3.4 g/dL (3.4-5.0); ALKALINE PHOSPHATASE 75 U/L (46-116); ASPARTATE AMINOTRANSFERASE 61 U/L (15-37); BILIRUBIN,TOTAL 0.3 mg/dL (0.1-1.0); TOTAL PROTEIN, SERUM 7.9 g/dL (6.4-8.2)
[2017-11-23] MEDS ORDERED: DONNATAL/LIDOCAINE/MAALOX 55 ML BOTTLE PO ONE (20:00)
[2017-11-23] MEDS ORDERED: HALOPERIDOL 5 MG TABLET PO PRN (20:30)
[2017-11-24 00:11] VITALS: BP 118/87
[2017-11-24] MEDS: LORazepam 2 MG TABLET PO PRN ×4 (00:35→20:09)
[2017-11-24] MEDS ORDERED: PNEUMOCOCCAL VACCINE POLYVALENT 0.5 ML VIAL [PPSV23] IM ONE (01:00)
[2017-11-24] MEDS ORDERED: -PHARMACY VACCINE NOTE- MISC ONE (01:00)
[2017-11-24 08:15] VITALS: BP 109/67
[2017-11-24] MEDS ORDERED: CHOLECALCIFEROL (VIT D3) 1,000 UNITS TABLET PO SCH (10:30)
[2017-11-24] MEDS: IBUPROFEN 600 MG TABLET PO PRN (13:06)
[2017-11-24 13:07] VITALS: BP 115/75
[2017-11-24] MEDS: SODIUM CHLORIDE 0.65% 44 ML NASAL SPRAY NASAL PRN (15:35)
[2017-11-24 16:18] VITALS: BP 111/74
[2017-11-24] MEDS ORDERED: LOPERAMIDE HCL 2 MG CAPSULE PO PRN (20:00)
[2017-11-24] MEDS: LISINOPRIL 20 MG TABLET PO SCH (20:00)
[2017-11-24] MEDS ORDERED: MAGNESIUM HYDROXIDE SUSPENSION 30 ML UDCUP PO PRN (20:00)
[2017-11-24] MEDS ORDERED: MAG HYDROX/AL HYDROX/SIMETH ES 30 ML SUSPENSION UDCUP PO PRN (20:00)
[2017-11-24] MEDS ORDERED: CloNIDine HCL 0.1 MG TABLET PO PRN (20:00)
[2017-11-24] MEDS ORDERED: ACETAMINOPHEN 325 MG TABLET PO PRN (20:00)
[2017-11-24] MEDS ORDERED: PETROLATUM,WHITE 71 GM JELLY TP PRN (20:00)
[2017-11-24] MEDS ORDERED: BENZOCAINE/MENTHOL LOZENGE MM PRN (20:00)
[2017-11-24] MEDS ORDERED: BACITRACIN 28.4 GM OINTMENT TP PRN (20:00)
[2017-11-24] MEDS ORDERED: ONDANSETRON HCL 4 MG TABLET PO PRN (20:00)
[2017-11-24] MEDS: TraZODone HCL 150 MG TABLET PO SCH (21:00)
[2017-11-24] MEDS: SODIUM CHLORIDE 0.65% 44 ML NASAL SPRAY NASAL SCH (21:02)
[2017-11-24] MEDS: SIMVASTATIN 10 MG TABLET PO SCH (21:09)
[2017-11-24] MEDS: OMEPRAZOLE 20 MG CAPSULE PO SCH (21:09)
[2017-11-24] MEDS: DOCUSATE SODIUM 100 MG CAPSULE PO SCH (21:09)
[2017-11-24] MEDS: ZOLPIDEM TARTRATE 10 MG TABLET PO PRN (22:15)
[2017-11-25] MEDS: ALBUTEROL SULFATE HFA 90 MCG/PUFF 8 GM INHALER IH PRN (03:53)
[2017-11-25] MEDS: SODIUM CHLORIDE 0.65% 44 ML NASAL SPRAY NASAL PRN (03:54)
[2017-11-25 04:21] VITALS: BP 128/74
[2017-11-25] MEDS: LORazepam 2 MG TABLET PO PRN ×2 (04:24→10:34)
[2017-11-25] MEDS: IBUPROFEN 600 MG TABLET PO PRN (04:25)
[2017-11-25 08:28] VITALS: BP 116/65
[2017-11-25 08:33] LABS: CHOL/HDL RATIO 2.7 (3.9-5.7); THYROID STIMULATING HORMONE 2.44 uIU/mL (0.36-3.74)
[2017-11-25] MEDS: VENLAFAXINE HCL 75 MG ER CAPSULE PO SCH (08:50)
[2017-11-25] MEDS: DOCUSATE SODIUM 100 MG CAPSULE PO SCH (08:50)
[2017-11-25] MEDS: OMEPRAZOLE 20 MG CAPSULE PO SCH (08:50)
[2017-11-25] MEDS: LISINOPRIL 20 MG TABLET PO SCH (08:51)
[2017-11-25] MEDS: CHOLECALCIFEROL (VIT D3) 1,000 UNITS TABLET PO SCH (08:51)
[2017-11-25] MEDS: SODIUM CHLORIDE 0.65% 44 ML NASAL SPRAY NASAL SCH ×4 (08:53→20:58)
[2017-11-25] MEDS: FLUTICASONE FUROATE 100 MCG/INH INHALER [14] IH SCH (08:53)
[2017-11-25 16:00] VITALS: BP 120/66
[2017-11-25] MEDS: SIMVASTATIN 10 MG TABLET PO SCH (20:52)
[2017-11-25] MEDS: ZOLPIDEM TARTRATE 10 MG TABLET PO PRN (20:58)
[2017-11-25] MEDS: TraZODone HCL 150 MG TABLET PO SCH (21:00)
[2017-11-26 00:33] VITALS: BP 139/86
[2017-11-26] MEDS: LORazepam 2 MG TABLET PO PRN ×4 (00:35→20:26)
[2017-11-26] MEDS: FLUTICASONE FUROATE 100 MCG/INH INHALER [14] IH SCH (08:13)
[2017-11-26] MEDS: SODIUM CHLORIDE 0.65% 44 ML NASAL SPRAY NASAL SCH ×4 (08:13→20:12)
[2017-11-26] MEDS: CHOLECALCIFEROL (VIT D3) 1,000 UNITS TABLET PO SCH (08:14)
[2017-11-26] MEDS: OMEPRAZOLE 20 MG CAPSULE PO SCH (08:14)
[2017-11-26] MEDS: VENLAFAXINE HCL 75 MG ER CAPSULE PO SCH (08:14)
[2017-11-26] MEDS: DOCUSATE SODIUM 100 MG CAPSULE PO SCH (08:14)
[2017-11-26] MEDS: LISINOPRIL 20 MG TABLET PO SCH (08:14)
[2017-11-26 08:31] VITALS: BP 128/62
[2017-11-26] MEDS: NAPROXEN 250 MG TABLET PO PRN (09:28)
[2017-11-26 09:30] VITALS: BP 144/88
[2017-11-26 16:00] VITALS: BP 113/87
[2017-11-26] MEDS: SIMVASTATIN 10 MG TABLET PO SCH (20:12)
[2017-11-26] MEDS: TraZODone HCL 150 MG TABLET PO SCH (20:26)
[2017-11-26] MEDS: ZOLPIDEM TARTRATE 10 MG TABLET PO PRN (20:26)
[2017-11-27 01:21] VITALS: BP 139/85
[2017-11-27] MEDS: LORazepam 2 MG TABLET PO PRN ×4 (07:09→20:08)
[2017-11-27] MEDS: DOCUSATE SODIUM 100 MG CAPSULE PO SCH (08:46)
[2017-11-27] MEDS: OMEPRAZOLE 20 MG CAPSULE PO SCH (08:46)
[2017-11-27] MEDS: LISINOPRIL 20 MG TABLET PO SCH (08:46)
[2017-11-27] MEDS: VENLAFAXINE HCL 75 MG ER CAPSULE PO SCH (08:46)
[2017-11-27] MEDS: CHOLECALCIFEROL (VIT D3) 1,000 UNITS TABLET PO SCH (08:46)
[2017-11-27] MEDS: SODIUM CHLORIDE 0.65% 44 ML NASAL SPRAY NASAL SCH ×4 (08:47→20:11)
[2017-11-27] MEDS: FLUTICASONE FUROATE 100 MCG/INH INHALER [14] IH SCH (08:47)
[2017-11-27 08:50] VITALS: BP 114/53
[2017-11-27] MEDS ORDERED: NICOTINE 21 MG/24 HOUR PATCH TD ONE (15:30)
[2017-11-27 16:43] VITALS: BP 136/81
[2017-11-27] MEDS: SIMVASTATIN 10 MG TABLET PO SCH (20:08)
[2017-11-27] MEDS: TraZODone HCL 150 MG TABLET PO SCH (20:12)
[2017-11-27] MEDS: ZOLPIDEM TARTRATE 10 MG TABLET PO PRN (21:44)
[2017-11-28 01:48] VITALS: BP 137/92
[2017-11-28] MEDS: ALBUTEROL SULFATE HFA 90 MCG/PUFF 8 GM INHALER IH PRN (02:14)
[2017-11-28] MEDS: NAPROXEN 250 MG TABLET PO PRN ×2 (02:51→16:08)
[2017-11-28 08:00] VITALS: BP 141/87
[2017-11-28] MEDS: LISINOPRIL 20 MG TABLET PO SCH (08:01)
[2017-11-28] MEDS: FLUTICASONE FUROATE 100 MCG/INH INHALER [14] IH SCH (08:01)
[2017-11-28] MEDS: DOCUSATE SODIUM 100 MG CAPSULE PO SCH (08:01)
[2017-11-28] MEDS: VENLAFAXINE HCL 75 MG ER CAPSULE PO SCH (08:01)
[2017-11-28] MEDS: CHOLECALCIFEROL (VIT D3) 1,000 UNITS TABLET PO SCH (08:01)
[2017-11-28] MEDS: SODIUM CHLORIDE 0.65% 44 ML NASAL SPRAY NASAL SCH ×4 (08:01→20:36)
[2017-11-28] MEDS: LORazepam 2 MG TABLET PO PRN ×3 (08:01→19:01)
[2017-11-28] MEDS: OMEPRAZOLE 20 MG CAPSULE PO SCH (08:01)
[2017-11-28 16:00] VITALS: BP 130/76
[2017-11-28] MEDS: SIMVASTATIN 10 MG TABLET PO SCH (20:35)
[2017-11-28] MEDS: ZOLPIDEM TARTRATE 10 MG TABLET PO PRN (20:36)
[2017-11-28] MEDS: TraZODone HCL 150 MG TABLET PO SCH ×2 (21:00→22:26)
[2017-11-29 07:06] VITALS: BP 125/76
[2017-11-29 08:45] VITALS: BP 134/84
[2017-11-29] MEDS: OMEPRAZOLE 20 MG CAPSULE PO SCH (09:29)
[2017-11-29] MEDS: FLUTICASONE FUROATE 100 MCG/INH INHALER [14] IH SCH (09:29)
[2017-11-29] MEDS: LISINOPRIL 20 MG TABLET PO SCH (09:29)
[2017-11-29] MEDS: CHOLECALCIFEROL (VIT D3) 1,000 UNITS TABLET PO SCH (09:29)
[2017-11-29] MEDS: DOCUSATE SODIUM 100 MG CAPSULE PO SCH (09:29)
[2017-11-29] MEDS: VENLAFAXINE HCL 75 MG ER CAPSULE PO SCH (09:29)
[2017-11-29] MEDS: SODIUM CHLORIDE 0.65% 44 ML NASAL SPRAY NASAL SCH ×4 (09:29→21:47)
[2017-11-29] MEDS: NAPROXEN 250 MG TABLET PO PRN (10:24)
[2017-11-29 10:26] VITALS: BP 131/75
[2017-11-29 11:24] VITALS: BP 129/77
[2017-11-29] MEDS: LORazepam 2 MG TABLET PO PRN ×2 (11:44→16:12)
[2017-11-29 16:24] VITALS: BP 116/62
[2017-11-29] MEDS: IBUPROFEN 600 MG TABLET PO PRN (16:51)
[2017-11-29] MEDS: TraZODone HCL 150 MG TABLET PO SCH (21:00)
[2017-11-29] MEDS: SIMVASTATIN 10 MG TABLET PO SCH (21:48)
[2017-11-30] MEDS: ALBUTEROL SULFATE HFA 90 MCG/PUFF 8 GM INHALER IH PRN (01:03)
[2017-11-30] MEDS: SODIUM CHLORIDE 0.65% 44 ML NASAL SPRAY NASAL PRN (01:03)
[2017-11-30 06:28] VITALS: BP 133/85
[2017-11-30] MEDS: CHOLECALCIFEROL (VIT D3) 1,000 UNITS TABLET PO SCH (08:20)
[2017-11-30] MEDS: LORazepam 2 MG TABLET PO PRN (08:20)
[2017-11-30] MEDS: FLUTICASONE FUROATE 100 MCG/INH INHALER [14] IH SCH (08:20)
[2017-11-30] MEDS: OMEPRAZOLE 20 MG CAPSULE PO SCH (08:20)
[2017-11-30] MEDS: LISINOPRIL 20 MG TABLET PO SCH (08:20)
[2017-11-30] MEDS: NAPROXEN 250 MG TABLET PO PRN (08:20)
[2017-11-30] MEDS: VENLAFAXINE HCL 75 MG ER CAPSULE PO SCH (08:21)
[2017-11-30] MEDS: DOCUSATE SODIUM 100 MG CAPSULE PO SCH (08:21)
[2017-11-30] MEDS: SODIUM CHLORIDE 0.65% 44 ML NASAL SPRAY NASAL SCH ×2 (08:21→13:13)
[2017-11-30 08:30] VITALS: BP 134/79
[2017-11-30] MEDS ORDERED: SODI44SP18 NASAL (10:14)
[2017-11-30] MEDS ORDERED: ALBU8HFA4 IH (10:14)
[2017-11-30] MEDS ORDERED: DSS100 PO (10:14)
[2017-11-30 11:17] VITALS: BP 130/83
[2017-11-30] MEDS: IBUPROFEN 600 MG TABLET PO PRN (11:17)
[2017-11-30] MEDS ORDERED: GuaiFENesin/D-METHORPHAN [SUGAR-FREE] 200-20MG/10 ML SYRUP UDCUP PO PRN (12:15)
== END 2017-11-30 13:30 | disposition home or self-care (01) | DRG 750 ==
LOC: EMS 17:28 → B2S 23:01
PROVIDERS: ADMIT Psychiatry & Neurology Child & Adolescent Psychiatry; ATTEND Psychiatry & Neurology Child & Adolescent Psychiatry
DX: F25.1 Schizoaffective disorder, depressive type (principal); J44.9 Chronic obstructive pulmonary disease, unspecified; R45.851 Suicidal ideations; I10 Essential (primary) hypertension; Z28.21 Immunization not carried out because of patient refusal; E78.00 Pure hypercholesterolemia, unspecified; E78.5 Hyperlipidemia, unspecified; F31.9 Bipolar disorder, unspecified; K21.9 Gastro-esophageal reflux disease without esophagitis; K58.9 Irritable bowel syndrome, unspecified; M19.90 Unspecified osteoarthritis, unspecified site; F17.210 Nicotine dependence, cigarettes, uncomplicated; F15.90 Other stimulant use, unspecified, uncomplicated; F41.9 Anxiety disorder, unspecified; M54.9 Dorsalgia, unspecified; E55.9 Vitamin D deficiency, unspecified; B18.2 Chronic viral hepatitis C
CPT/HCPCS: 82306; 84443; 99285; G0480; J3535

== ENCOUNTER 2018-02-12 14:18 | Emergency (ER) | payer MEDICARE, MEDICAID ==
[~2018-02-12] VITALS: Ht 152.4 cm; Wt 76.3 kg
[~2018-02-12 14:18] MED LIST changes: +DSS100 PO; -FLUT1BLS IH; -NITR25OR3 PO; -PRED1 PO; -VITAD1000 PO
[2018-02-12 15:08] LABS: AMPHET/METH SCREEN,URINE NEGATIVE (NEGATIVE); BARBITURATE SCREEN, URINE NEGATIVE (NEGATIVE); BENZODIAZEPINES SCREEN,URINE NEGATIVE (NEGATIVE); CANNABINOID SCREEN,URINE POSITIVE (NEGATIVE); COCAINE SCREEN,URINE NEGATIVE (NEGATIVE); METHADONE SCREEN, URINE NEGATIVE (NEGATIVE); OPIATE SCREEN,URINE NEGATIVE (NEGATIVE)
[2018-02-12 15:10] LABS: PHENCYCLIDINE SCREEN,URINE NEGATIVE (NEGATIVE)
[2018-02-12] MEDS ORDERED: VENL-67 PO (15:27)
[2018-02-12] MEDS ORDERED: ALBUTEROL SULFATE 5 MG/ML 20 ML NEB SOLN [BULK] NEB ONE (15:30)
[2018-02-12] MEDS ORDERED: IPRATROPIUM BROMIDE 0.5 MG/2.5 ML NEB SOLUTION NEB ONE (15:30)
[2018-02-12 15:47] LABS: BASOPHILS % (AUTO) 0.8 % (0.0-2.0); EOSINOPHILS % (AUTO) 12.5 % (1.0-6.0); HEMATOCRIT 46.1 % (36-46); HEMOGLOBIN 15.6 g/dL (12.0-16.0); LYMPHOCYTES # (AUTO) 2.1 K/uL (1.0-4.8); LYMPHOCYTES % (AUTO) 22.8 % (22.0-44.0); MEAN CORPUSCULAR HEMOGLOBIN 29.2 pg (26.0-34.0); MEAN CORPUSCULAR HGB CONC 33.8 G/dL (31.0-37.0); MEAN CORPUSCULAR VOLUME 86 fL (80-100); MONOCYTES # (AUTO) 0.6 K/uL (0.1-1.0); MONOCYTES % (AUTO) 6.5 % (2.0-9.0); NEUTROPHILS # (AUTO) 5.2 K/uL (1.8-7.7); NEUTROPHILS % (AUTO) 57.4 % (40.0-70.0); PLATELET COUNT (AUTO) 255 K/uL (150-450); RED BLOOD CELL COUNT(AUTO) 5.34 MIL/uL (4.00-5.20); RED CELL DISTRIBUTION WIDTH 13.2 % (11.5-14.5)
[2018-02-12] MEDS ORDERED: 0.9% SODIUM CHLORIDE 15 ML NEB SOLUTION NEB ONE (15:47)
[2018-02-12 15:55] LABS: ANION GAP 11 mmol/L (8-16); CALCIUM, TOTAL 9.3 mg/dL (8.8-10.5); CARBON DIOXIDE 27 mmol/L (22-29); CHLORIDE 103 mmol/L (98-107); CREATININE 0.63 mg/dL (0.60-1.30); GLOMERULAR FILTR. RATE CALC > 60 mL/min (>60); GLUCOSE,RANDOM 98 mg/dL (70-110); POTASSIUM 3.7 mmol/L (3.5-5.1); SODIUM SERUM 141 mmol/L (136-145); UREA NITROGEN, BLOOD 17 mg/dL (7-18)
[2018-02-12 16:06] LABS: ALANINE AMINOTRANSFERASE 49 U/L (12-78); ALBUMIN 3.9 g/dL (3.4-5.0); ALKALINE PHOSPHATASE 111 U/L (46-116); ASPARTATE AMINOTRANSFERASE 29 U/L (15-37); BILIRUBIN,TOTAL 0.7 mg/dL (0.1-1.0); TOTAL PROTEIN, SERUM 8.5 g/dL (6.4-8.2)
[2018-02-12] MEDS ORDERED: LORazepam 2 MG TABLET PO ONE (16:45)
[2018-02-12] MEDS ORDERED: IBUPROFEN 800 MG TABLET PO ONE (17:30)
[2018-02-12] MEDS ORDERED: DEXAMETHASONE SOD PHOS 4 MG/ML 5 ML VIAL IM ONE (18:15)
[2018-02-12 18:52] VITALS: BP 142/87
== END 2018-02-12 18:54 | disposition home or self-care (01) ==
LOC: EMS 14:20
DX: F31.9 Bipolar disorder, unspecified (principal); J44.1 Chronic obstructive pulmonary disease with (acute) exacerbation; I10 Essential (primary) hypertension; B19.20 Unspecified viral hepatitis C without hepatic coma; F41.9 Anxiety disorder, unspecified; E78.00 Pure hypercholesterolemia, unspecified; F20.9 Schizophrenia, unspecified; F17.210 Nicotine dependence, cigarettes, uncomplicated; F19.90 Other psychoactive substance use, unspecified, uncomplicated; Z76.0 Encounter for issue of repeat prescription; Z88.0 Allergy status to penicillin
CPT/HCPCS: 36415; 80053; 80307; 85025; 94644; 96372; 99285; 99406; G0480; J1100

== ENCOUNTER 2018-04-23 12:22 | Inpatient (IN) | payer MEDICARE, MEDICAID ==
[~2018-04-23] VITALS: Ht 152.4 cm; Wt 174.0 kg
[~2018-04-23 12:22] MED LIST changes: +VENL-67 PO; -VENL-68 PO
[2018-04-23 12:37] LABS: GLUCOSE,POINT OF CARE 85 MG/DL (70-110)
[2018-04-23] MEDS ORDERED: AUD NEB (12:40)
[2018-04-23] MEDS ORDERED: PRED1 PO (12:40)
[2018-04-23 12:59] LABS: BASOPHILS % (AUTO) 0.9 % (0.0-2.0); EOSINOPHILS % (AUTO) 2.8 % (1.0-6.0); HEMATOCRIT 45.1 % (36-46); HEMOGLOBIN 15.4 g/dL (12.0-16.0); LYMPHOCYTES # (AUTO) 2.4 K/uL (1.0-4.8); MEAN CORPUSCULAR HEMOGLOBIN 29.5 pg (26.0-34.0); MEAN CORPUSCULAR HGB CONC 34.1 G/dL (31.0-37.0); MEAN CORPUSCULAR VOLUME 87 fL (80-100); MONOCYTES # (AUTO) 0.5 K/uL (0.1-1.0); MONOCYTES % (AUTO) 5.9 % (2.0-9.0); NEUTROPHILS # (AUTO) 5.6 K/uL (1.8-7.7); NEUTROPHILS % (AUTO) 63.4 % (40.0-70.0); PLATELET COUNT (AUTO) 283 K/uL (150-450); RED BLOOD CELL COUNT(AUTO) 5.22 MIL/uL (4.00-5.20); RED CELL DISTRIBUTION WIDTH 14.5 % (11.5-14.5)
[2018-04-23 13:17] LABS: ANION GAP 10 mmol/L (8-16); CARBON DIOXIDE 27 mmol/L (22-29); CHLORIDE 106 mmol/L (98-107); CREATININE 0.69 mg/dL (0.60-1.30); GLOMERULAR FILTR. RATE CALC > 60 mL/min (>60); GLUCOSE,RANDOM 98 mg/dL (70-110); SODIUM SERUM 143 mmol/L (136-145); UREA NITROGEN, BLOOD 18 mg/dL (7-18)
[2018-04-23 13:23] LABS: ALANINE AMINOTRANSFERASE 113 U/L (12-78); ALKALINE PHOSPHATASE 93 U/L (46-116); ASPARTATE AMINOTRANSFERASE 64 U/L (15-37); BILIRUBIN,TOTAL 0.6 mg/dL (0.1-1.0); TOTAL PROTEIN, SERUM 8.1 g/dL (6.4-8.2)
[2018-04-23 13:28] LABS: AMPHET/METH SCREEN,URINE NEGATIVE (NEGATIVE); BARBITURATE SCREEN, URINE NEGATIVE (NEGATIVE); BENZODIAZEPINES SCREEN,URINE NEGATIVE (NEGATIVE); CANNABINOID SCREEN,URINE NEGATIVE (NEGATIVE); COCAINE SCREEN,URINE NEGATIVE (NEGATIVE); METHADONE SCREEN, URINE NEGATIVE (NEGATIVE); OPIATE SCREEN,URINE NEGATIVE (NEGATIVE)
[2018-04-23 13:35] LABS: PHENCYCLIDINE SCREEN,URINE NEGATIVE (NEGATIVE)
[2018-04-23] MEDS: LORazepam 2 MG TABLET PO PRN (15:12)
[2018-04-23] MEDS ORDERED: ZOLPIDEM TARTRATE 5 MG TABLET PO PRN (16:45)
[2018-04-23 18:45] VITALS: BP 107/72
[2018-04-23] MEDS: ZOLPIDEM TARTRATE 10 MG TABLET PO PRN (22:42)
[2018-04-24 06:30] VITALS: BP 104/62
[2018-04-24 08:12] VITALS: BP 126/88
[2018-04-24] MEDS: DOCUSATE SODIUM 100 MG CAPSULE PO SCH (08:14)
[2018-04-24] MEDS: FLUTICASONE/VILANTEROL 200-25 MCG/INH INHALER [14] IH SCH (08:14)
[2018-04-24] MEDS: ALBUTEROL SULFATE HFA 90 MCG/PUFF 8 GM INHALER IH SCH (08:14)
[2018-04-24] MEDS: SIMVASTATIN 10 MG TABLET PO SCH (08:14)
[2018-04-24] MEDS: LISINOPRIL 10 MG TABLET PO SCH (08:15)
[2018-04-24] MEDS: OMEPRAZOLE 20 MG CAPSULE PO SCH (08:15)
[2018-04-24] MEDS: NICOTINE 14 MG/24 HOUR PATCH TD SCH (08:15)
[2018-04-24] MEDS: LORazepam 2 MG TABLET PO PRN ×3 (08:56→19:03)
[2018-04-24] MEDS: ARIPiprazole 5 MG TABLET PO SCH (11:00)
[2018-04-24] MEDS: VENLAFAXINE HCL 150 MG ER CAPSULE PO SCH (12:52)
[2018-04-24 18:46] VITALS: BP 119/75
[2018-04-24] MEDS: ZOLPIDEM TARTRATE 10 MG TABLET PO PRN (21:39)
[2018-04-25 01:34] VITALS: BP 140/82
[2018-04-25] MEDS: LORazepam 2 MG TABLET PO PRN ×4 (01:34→19:21)
[2018-04-25] MEDS ORDERED: MAG HYDROX/AL HYDROX/SIMETH 30 ML SUSP UDCUP PO PRN (06:30)
[2018-04-25 07:26] LABS: HEMOGLOBIN A1C 6.2 % (4.5-6.2)
[2018-04-25 07:47] LABS: CHOL/HDL RATIO 2.6 (3.9-5.7); FREE T4 (FREE THYROXINE) 0.87 ng/dL (0.76-1.46); THYROID STIMULATING HORMONE 1.97 uIU/mL (0.36-3.74)
[2018-04-25 08:05] VITALS: BP 137/74
[2018-04-25] MEDS: VENLAFAXINE HCL 150 MG ER CAPSULE PO SCH (08:16)
[2018-04-25] MEDS: ARIPiprazole 5 MG TABLET PO SCH (08:16)
[2018-04-25] MEDS: SIMVASTATIN 10 MG TABLET PO SCH ×2 (08:17→20:20)
[2018-04-25] MEDS: OMEPRAZOLE 20 MG CAPSULE PO SCH (08:17)
[2018-04-25] MEDS: NICOTINE 14 MG/24 HOUR PATCH TD SCH (08:18)
[2018-04-25] MEDS: DOCUSATE SODIUM 100 MG CAPSULE PO SCH (08:18)
[2018-04-25] MEDS: LISINOPRIL 10 MG TABLET PO SCH (08:18)
[2018-04-25] MEDS: FLUTICASONE/VILANTEROL 200-25 MCG/INH INHALER [14] IH SCH (08:23)
[2018-04-25] MEDS: ALBUTEROL SULFATE HFA 90 MCG/PUFF 8 GM INHALER IH SCH (08:24)
[2018-04-25 16:07] VITALS: BP 125/72
[2018-04-25] MEDS: ZOLPIDEM TARTRATE 10 MG TABLET PO PRN (20:37)
[2018-04-26 00:15] VITALS: BP 130/86
[2018-04-26] MEDS: LORazepam 2 MG TABLET PO PRN ×4 (06:10→20:00)
[2018-04-26] MEDS: FLUTICASONE/VILANTEROL 200-25 MCG/INH INHALER [14] IH SCH (08:18)
[2018-04-26] MEDS: ALBUTEROL SULFATE HFA 90 MCG/PUFF 8 GM INHALER IH SCH (08:18)
[2018-04-26] MEDS: NICOTINE 14 MG/24 HOUR PATCH TD SCH (08:19)
[2018-04-26] MEDS: LISINOPRIL 10 MG TABLET PO SCH (08:20)
[2018-04-26] MEDS: OMEPRAZOLE 20 MG CAPSULE PO SCH (08:20)
[2018-04-26] MEDS: DOCUSATE SODIUM 100 MG CAPSULE PO SCH (08:20)
[2018-04-26] MEDS: CHOLECALCIFEROL (VIT D3) 1,000 UNITS TABLET PO SCH (08:20)
[2018-04-26] MEDS: VENLAFAXINE HCL 150 MG ER CAPSULE PO SCH (08:21)
[2018-04-26] MEDS: ARIPiprazole 5 MG TABLET PO SCH (08:21)
[2018-04-26 08:30] VITALS: BP 135/85
[2018-04-26] MEDS ORDERED: GLYCERIN/WITCH HAZEL LEAF 40 PADS JAR TP PRN (13:45)
[2018-04-26 16:00] VITALS: BP 147/86
[2018-04-26] MEDS: VENLAFAXINE HCL 75 MG ER CAPSULE PO SCH (16:12)
[2018-04-26] MEDS: PHENYLEPHRINE/SHK LV/MIN OIL/PET 57 GM OINTMENT TP PRN (16:23)
[2018-04-26] MEDS ORDERED: VENLAFAXINE HCL 75 MG ER CAPSULE PO SCH (17:00)
[2018-04-26] MEDS: SIMVASTATIN 10 MG TABLET PO SCH (20:00)
[2018-04-26] MEDS: ZOLPIDEM TARTRATE 10 MG TABLET PO PRN (20:27)
[2018-04-26] MEDS ORDERED: ALBUTEROL SULFATE HFA 90 MCG/PUFF 8 GM INHALER IH PRN (21:45)
[2018-04-26] MEDS: HALOPERIDOL 5 MG TABLET PO PRN (21:46)
[2018-04-27 00:08] VITALS: BP 145/86
[2018-04-27 08:05] VITALS: BP 125/77
[2018-04-27] MEDS: LISINOPRIL 10 MG TABLET PO SCH (08:15)
[2018-04-27] MEDS: VENLAFAXINE HCL 150 MG ER CAPSULE PO SCH (08:15)
[2018-04-27] MEDS: OMEPRAZOLE 20 MG CAPSULE PO SCH (08:15)
[2018-04-27] MEDS: NICOTINE 14 MG/24 HOUR PATCH TD SCH (08:15)
[2018-04-27] MEDS: CHOLECALCIFEROL (VIT D3) 1,000 UNITS TABLET PO SCH (08:15)
[2018-04-27] MEDS: FLUTICASONE/VILANTEROL 200-25 MCG/INH INHALER [14] IH SCH (08:16)
[2018-04-27] MEDS: DOCUSATE SODIUM 100 MG CAPSULE PO SCH (09:00)
[2018-04-27] MEDS: ARIPiprazole 5 MG TABLET PO SCH (09:00)
[2018-04-27] MEDS: LORazepam 2 MG TABLET PO PRN ×3 (09:00→20:20)
[2018-04-27 16:15] VITALS: BP 125/69
[2018-04-27] MEDS: VENLAFAXINE HCL 75 MG ER CAPSULE PO SCH (17:15)
[2018-04-27] MEDS: SIMVASTATIN 10 MG TABLET PO SCH (20:20)
[2018-04-28 05:13] VITALS: BP 138/90
[2018-04-28] MEDS: LORazepam 2 MG TABLET PO PRN ×4 (06:02→18:59)
[2018-04-28 08:10] VITALS: BP 119/63
[2018-04-28] MEDS: PHENYLEPHRINE/SHK LV/MIN OIL/PET 57 GM OINTMENT TP PRN (08:58)
[2018-04-28] MEDS: CHOLECALCIFEROL (VIT D3) 1,000 UNITS TABLET PO SCH (08:59)
[2018-04-28] MEDS: DOCUSATE SODIUM 100 MG CAPSULE PO SCH (08:59)
[2018-04-28] MEDS: FLUTICASONE/VILANTEROL 200-25 MCG/INH INHALER [14] IH SCH (08:59)
[2018-04-28] MEDS: LISINOPRIL 10 MG TABLET PO SCH (08:59)
[2018-04-28] MEDS: ARIPiprazole 5 MG TABLET PO SCH (09:00)
[2018-04-28] MEDS: VENLAFAXINE HCL 150 MG ER CAPSULE PO SCH (09:00)
[2018-04-28] MEDS: OMEPRAZOLE 20 MG CAPSULE PO SCH (09:00)
[2018-04-28] MEDS: NICOTINE 14 MG/24 HOUR PATCH TD SCH (09:00)
[2018-04-28] MEDS ORDERED: IBUPROFEN 600 MG TABLET PO PRN (10:15)
[2018-04-28] MEDS ORDERED: ACETAMINOPHEN 325 MG TABLET PO PRN (10:15)
[2018-04-28] MEDS ORDERED: VENL-68 PO (15:15)
[2018-04-28] MEDS ORDERED: VENL-67 PO (15:15)
[2018-04-28] MEDS ORDERED: ARIP5TAB8 PO (15:17)
[2018-04-28] MEDS ORDERED: SIMV-259 PO (15:19)
[2018-04-28] MEDS ORDERED: DSS100 PO (15:20)
[2018-04-28] MEDS ORDERED: OMEP20 PO (15:20)
[2018-04-28] MEDS ORDERED: FLUT1BLS IH (15:20)
[2018-04-28] MEDS ORDERED: VITAD1000 PO (15:20)
[2018-04-28] MEDS ORDERED: LISI-661 PO (15:21)
[2018-04-28 16:00] VITALS: BP 106/66
[2018-04-28] MEDS: VENLAFAXINE HCL 75 MG ER CAPSULE PO SCH (16:07)
[2018-04-28] MEDS: HALOPERIDOL 5 MG TABLET PO PRN (16:36)
[2018-04-28] MEDS: SIMVASTATIN 10 MG TABLET PO SCH (20:02)
[2018-04-29 07:17] VITALS: BP 100/72
[2018-04-29 08:04] VITALS: BP 116/63
[2018-04-29] MEDS: NICOTINE 14 MG/24 HOUR PATCH TD SCH (08:58)
[2018-04-29] MEDS: CHOLECALCIFEROL (VIT D3) 1,000 UNITS TABLET PO SCH (08:59)
[2018-04-29] MEDS: DOCUSATE SODIUM 100 MG CAPSULE PO SCH (08:59)
[2018-04-29] MEDS: LISINOPRIL 10 MG TABLET PO SCH (09:00)
[2018-04-29] MEDS: OMEPRAZOLE 20 MG CAPSULE PO SCH (09:00)
[2018-04-29] MEDS: ARIPiprazole 5 MG TABLET PO SCH (09:01)
[2018-04-29] MEDS: VENLAFAXINE HCL 150 MG ER CAPSULE PO SCH (09:01)
[2018-04-29] MEDS: FLUTICASONE/VILANTEROL 200-25 MCG/INH INHALER [14] IH SCH (09:03)
== END 2018-04-29 10:41 | disposition home or self-care (01) | DRG 750 ==
LOC: EMS 12:25 → B2S 17:16 → B3A 04-26 10:09
PROVIDERS: ADMIT Psychiatry & Neurology Psychiatry; ATTEND Psychiatry & Neurology Psychiatry
DX: F25.9 Schizoaffective disorder, unspecified (principal); R45.851 Suicidal ideations; J44.9 Chronic obstructive pulmonary disease, unspecified; B86 Scabies; F17.210 Nicotine dependence, cigarettes, uncomplicated; B19.20 Unspecified viral hepatitis C without hepatic coma; K21.9 Gastro-esophageal reflux disease without esophagitis; F41.9 Anxiety disorder, unspecified; K59.00 Constipation, unspecified; E78.5 Hyperlipidemia, unspecified; E78.00 Pure hypercholesterolemia, unspecified; R03.0 Elevated blood-pressure reading, without diagnosis of hypertension; Z88.0 Allergy status to penicillin; Z79.899 Other long term (current) drug therapy
CPT/HCPCS: 82306; 83036; 84439; 84443; 99285; G0480; J3535